=== PATIENT | male | born 1940 | race Caucasian/White ===

== ENCOUNTER 2016-09-16 11:55 | Emergency (ER) | payer MEDICARE, MEDICAID, OTHER ==
[~2016-09-16] VITALS: Ht 167.6 cm; Wt 60.0 kg
[~2016-09-16 11:55] MED LIST: AVOD0.5C PO; CANA300T PO; CARV25TA PO; LACO50 PO; OXYBXL5 PO; ROSU10 PO; TAMS5CAP PO; TRAD5TAB PO
[2016-09-16 12:18] VITALS: BP 161/74; PULSE 84; RESP 18; TEMP 98.1
--- NOTE | 2016-09-16 12:50 | PD ---
HPI . Perdomo Act Chief Complaint: Psychiatric Symptoms Time Seen by Provider: 12:32 Travel History International Travel<30 days: No Contact w/Intl Traveler<30days: No Traveled to known affect area: No History of Present Illness HPI The patient was brought to us by police under the Perdomo Act. The patient states that he was having a verbal altercation with his significant other. He states that she is kicking him out. The police were reportedly called. The Perdomo act papers state that the patient told the police "it would be easier to just ." The patient was subsequently brought to us for evaluation. The patient states that he was not violent in any way. He states that he is not feeling suicidal. He reports no previous psychiatric history. PFSH Past Medical History Cancer: Yes (PROSTATE) Cardiovascular Problems: Yes (CABG X 3, PACEMAKER) Diabetes: Yes Diminished Hearing: No Endocrine: Yes Hepatitis: No Hiatal Hernia: No Immune Disorder: No Musculoskeletal: No Neurologic: Yes (NEUROPATHY ) Respiratory: No Immunizations Current: Yes Thyroid Disease: No Tetanus Vaccination: > 5 Years Influenza Vaccination: No Past Surgical History Abdominal Surgery: No AICD: No Cardiac Surgery: Yes (CABG X 3) Ear Surgery: No Endocrine Surgery: No Eye Surgery: No Genitourinary Surgery: Yes Gynecologic Surgery: No Joint Replacement: No Oral Surgery: No Pacemaker: Yes ([facility], pt states it "doesn't go off") Thoracic Surgery: No Social History Alcohol Use: No Tobacco Use: Yes Substance Use: No Allergies-Medications (Allergen,Severity, Reaction): Coded Allergies: Iodine (Verified Allergy, Severe, HIVES , 03/24/16) SHELLFISH Shellfish (Verified Allergy, Severe, Rash, 03/24/16) Reported Meds & Prescriptions Reported Meds & Active Scripts Active Ditropan XL 24 HR (Oxybutynin Chloride) 5 Mg Tab 5 Mg PO DAILY Reported Vimpat (Lacosamide) 50 Mg Tab 50 Mg PO BID Carvedilol 25 Mg Tab 25 Mg PO BID Invokana (Canagliflozin) 300 Mg Tab 300 Mg PO DAILY Take before 1st meal of day. Tradjenta (Linagliptin) 5 Mg Tab 5 Mg PO DAILY Crestor (Rosuvastatin Calcium) 10 Mg Tab 10 Mg PO DAILY Avodart (Dutasteride) 0.5 Mg Cap 0.5 Mg PO DAILY Flomax (Tamsulosin HCl) 0.4 Mg Cap 0.4 Mg PO HS Review of Systems Except as stated in HPI: all other systems reviewed are Neg Physical Exam Narrative GENERAL: Awake and alert and in no acute distress. SKIN: Warm and dry. HEAD: Atraumatic. Normocephalic. EYES: Pupils equal and round. NECK: Trachea midline. CARDIOVASCULAR: Regular rate and rhythm. RESPIRATORY: No accessory muscle use. MUSCULOSKELETAL: No obvious deformities. No edema. NEUROLOGICAL: Awake and alert. No obvious cranial nerve deficits. Motor grossly within normal limits. Normal speech. PSYCHIATRIC: Appropriate mood and affect; insight and judgment normal. Data Data Last Documented VS Vital Signs Date Time Temp Pulse Resp B/P Pulse Ox O2 Delivery O2 Flow Rate FiO2 09/16/16 12:18 98.1 84 18 161/74 Orders Complete Blood Count With Diff (09/16/16 12:32) Comprehensive Metabolic Panel (09/16/16 12:32) Psych Screen (09/16/16 12:32) Drug Screen, Random Urine (09/16/16 12:32) Alcohol (Ethanol) (09/16/16 12:32) Diet Regular Basic (09/16/16 Lunch) Labs Laboratory Tests Test 09/16/16 12:50 White Blood Count 11.9 TH/MM3 Red Blood Count 5.77 MIL/MM3 Hemoglobin 16.8 GM/DL Hematocrit 50.4 % Mean Corpuscular Volume 87.3 FL Mean Corpuscular Hemoglobin 29.1 PG Mean Corpuscular Hemoglobin 33.4 % Concent Red Cell Distribution Width 15.8 % Platelet Count 196 TH/MM3 Mean Platelet Volume 8.8 FL Neutrophils (%) (Auto) 76.0 % Lymphocytes (%) (Auto) 16.8 % Monocytes (%) (Auto) 5.8 % Eosinophils (%) (Auto) 1.0 % Basophils (%) (Auto) 0.4 % Neutrophils # (Auto) 9.0 TH/MM3 Lymphocytes # (Auto) 2.0 TH/MM3 Monocytes # (Auto) 0.7 TH/MM3 Eosinophils # (Auto) 0.1 TH/MM3 Basophils # (Auto) 0.1 TH/MM3 CBC Comment DIFF FINAL Differential Comment Sodium Level 135 MEQ/L Potassium Level 4.1 MEQ/L Chloride Level 103 MEQ/L Carbon Dioxide Level 20.9 MEQ/L Anion Gap 11 MEQ/L Blood Urea Nitrogen 15 MG/DL Creatinine 1.22 MG/DL Estimat Glomerular Filtration 58 ML/MIN Rate Random Glucose 240 MG/DL Calcium Level 9.1 MG/DL Total Bilirubin 0.4 MG/DL Aspartate Amino Transf 12 U/L (AST/SGOT) Alanine Aminotransferase 15 U/L (ALT/SGPT) Alkaline Phosphatase 104 U/L Total Protein 7.4 GM/DL Albumin 3.1 GM/DL Ethyl Alcohol Level LESS THAN 3 MG/DL MDM Medical Decision Making Medical Screen Exam Complete: Yes Emergency Medical Condition: Yes Medical Record Reviewed: Yes (this patient has a history of prostate cancer, diabetes, COPD and coronary artery disease. There is no mention in his old records of any psychiatric illness.) Differential Diagnosis Differential diagnosis includes but is not limited to depression with suicidal gesture, suicide attempt, suicidal ideation, attention seeking behavior. Narrative Course This patient presents as a Perdomo Act. He will be medically cleared and then referred for psychiatric screening. CBC & BMP Diagram 09/16/16 12:50 Alcohol level is negative. This patient is medically clear for psychiatric evaluation. Diagnosis Primary Impression: Medical clearance for psychiatric admission Condition: Stable Lisa Beebe MD Sep 16, 2016 12:50
[2016-09-16 13:07] LABS: BASOPHIL # 0.1 TH/MM3 (0-0.2); BASOPHIL % 0.4 % (0.0-2.0); EOSINOPHIL # 0.1 TH/MM3 (0-0.4); HEMATOCRIT 50.4 % (39.0-51.0); HEMO FLAGS DIFF FINAL; LYMPH % 16.8 % (9.0-44.0); MEAN CELL VOLUME 87.3 FL (80.0-100.0); MEAN CORPUSCULAR HEMOGLOBIN 29.1 PG (27.0-34.0); MEAN CORPUSCULAR HGB CONC 33.4 % (32.0-36.0); MONO % 5.8 % (0.0-8.0); PLATELET COUNT 196 TH/MM3 (150-450); RED BLOOD COUNT 5.77 MIL/MM3 (4.50-5.90); RED CELL DISTRIBUTION WIDTH 15.8 % (11.6-17.2); WHITE BLOOD COUNT 11.9 TH/MM3 (4.0-11.0)
[2016-09-16 13:23] LABS: ALT (GPT) 15 U/L (12-78); ANION GAP 11 MEQ/L (5-15); AST (GOT) 12 U/L (15-37); BICARBONATE 20.9 MEQ/L (21.0-32.0); BLOOD UREA NITROGEN 15 MG/DL (7-18); CHLORIDE 103 MEQ/L (98-107); GLOMERULAR FILTRATION RATE 58 ML/MIN (>89); POTASSIUM 4.1 MEQ/L (3.5-5.1); SODIUM (NA) 135 MEQ/L (136-145)
[2016-09-16 13:25] LABS: ALKALINE PHOSPHATASE 104 U/L (45-117); TOTAL BILIRUBIN ADULT 0.4 MG/DL (0.2-1.0)
[2016-09-16 13:49] LABS: AMPHETAMINE, URINE NEG (NEG); BARBITURATES, URINE NEG (NEG); COCAINE, URINE NEG (NEG)
[2016-09-16 14:43] VITALS: BP 145/78; PULSE 84; RESP 18; O2SAT 98
[2016-09-17] MEDS ORDERED: METF500T PO (00:53)
[2016-09-17] MEDS ORDERED: OXYBUTYNIN CHLORIDE 5 MG TAB PO ONE (01:00)
[2016-09-17] MEDS ORDERED: ACETAMINOPHEN 325 MG TAB PO ONE (01:00)
[2016-09-17 02:25] VITALS: BP 159/67; PULSE 75; RESP 18; O2SAT 96
[2016-09-17 06:31] VITALS: BP_SYST 204; BP_SYST 211; BP_SYST 218; BP_DIAS 90; BP_DIAS 91; PULSE 73; RESP 18; O2SAT 96
[2016-09-17] MEDS ORDERED: CARVEDILOL 12.5 MG TAB PO ONE (06:45)
[2016-09-17 10:40] VITALS: BP 194/79; PULSE 60; RESP 20
--- NOTE | 2016-09-17 12:05 | PD ---
History of Present Illness Chief Complaint: Psychiatric Symptoms Time Seen by Provider: 11:30 Travel History International Travel<30 Days: No Contact w/Intl Traveler<30days: No Known affected area: No Legal Status Legal Status: Perdomo Act Perdomo Act Signed By: Anuj Baez Perdomo Act Comment: 09/16/2016 10:34 AM History of Present Illness: History of Present Illness HPI The patient is a 76 year old male with no previous psychiatric history who was brought to us under the Perdomo Act initiated by [employer]. The BA alleges that the patient stated it would be easier to just and that he needed to be seen by a psychiatrist. He reports that while involved in a verbal argument with his friend and roommate of 20 years he became angry and made the statement . His roommate wants to move to another state and he has to find a viable living arrangement and was working on the computer when they began to argue. He did not make any attempts at harming himself and denies that he has any intent of doing so and states " that would be stupid". EMR is reviewed. No previous contact with [facility] psychiatry dept. Current toxicology is negative. Patient has been monitored here in [facility] and he has presented no behavioral concerns and no suicidality. He is alert and oriented male who appears stated age. he is engaging and cooperative. There is no evidence of any psychosis and he does not present any symptoms of rhina or hypomania. He denies any depression or anxiety and does tell me he was depressed 8 years go when his son was murdered. His only concern now is getting his medications and finding a place to stay. He has never received any psychiatric care. He also denies any hx of violence and states that the conflicts with his girlfriend are only verbal in nature. He is interested in finding an PENITENTIARY that he can afford so that he can move out on his own. PFSH Past Medical History Cancer: Yes (PROSTATE) Cardiovascular Problems: Yes (CABG X 3, PACEMAKER) Diabetes: Yes Diminished Hearing: No Endocrine: Yes Hepatitis: No Hiatal Hernia: No Immune Disorder: No Musculoskeletal: No Neurologic: Yes (NEUROPATHY ) Respiratory: No Immunizations Current: Yes Thyroid Disease: No Tetanus Vaccination: > 5 Years Influenza Vaccination: No Past Surgical History Abdominal Surgery: No AICD: No Cardiac Surgery: Yes (CABG X 3) Ear Surgery: No Endocrine Surgery: No Eye Surgery: No Genitourinary Surgery: Yes Gynecologic Surgery: No Joint Replacement: No Oral Surgery: No Pacemaker: Yes ([facility], pt states it "doesn't go off") Thoracic Surgery: No Psychiatric History Psychiatric History Hx Psychiatric Treatment: No previous tx. No previous hx of suicde attempts. No hx of violence. History of Inpatient Treatment: No Guns or firearms in home: No Social History Single male. Born in [place]. retired staff appraiser. Lives with his female friend. Hx Alcohol Use: No Hx Tobacco Use: Yes Hx Substance Use: Yes (3-4 small cigars daily) Substance Use Type: Nicotine/Cigarettes Hx of Substance Use Treatment: No Family Psychiatric History negative Allergies-Medications (Allergen,Severity, Reaction): Coded Allergies: Iodine (Verified Allergy, Severe, HIVES , 03/24/16) SHELLFISH Shellfish (Verified Allergy, Severe, Rash, 03/24/16) Reported Meds & Prescriptions Reported Meds & Active Scripts Active Ditropan XL 24 HR (Oxybutynin Chloride) 5 Mg Tab 5 Mg PO DAILY Reported Metformin (Metformin HCl) 500 Mg Tab 500 Mg PO BIDPC With meals Vimpat (Lacosamide) 50 Mg Tab 50 Mg PO BID Carvedilol 25 Mg Tab 25 Mg PO BID Crestor (Rosuvastatin Calcium) 10 Mg Tab 10 Mg PO DAILY Avodart (Dutasteride) 0.5 Mg Cap 0.5 Mg PO DAILY Flomax (Tamsulosin HCl) 0.4 Mg Cap 0.4 Mg PO HS Review of Systems Constitutional: DENIES: Diaphoretic episodes, Fatigue, Fever, Weight gain, Weight loss, Chills, Dizziness, Change in appetite, Night Sweats Endocrine: DENIES: Heat/cold intolerance, Polydipsia, Polyuria, Polyphagia Eyes: COMPLAINS OF: Vision loss Ears, nose, mouth, throat: DENIES: Tinnitus, Hearing loss, Vertigo, Nasal discharge, Oral lesions, Throat pain, Hoarseness, Ear Pain, Running Nose, Epistaxis, Sinus Pain, Toothache, Odynophagia Respiratory: DENIES: Apneas, Cough, Snoring, Wheezing, Hemoptysis, Sputum production, Shortness of breath Cardiovascular: COMPLAINS OF: Chest pain, Dyspnea on Exertion Gastrointestinal: DENIES: Abdominal pain, Black stools, Bloody stools, Constipation, Diarrhea, Nausea, Vomiting, Difficulty Swallowing, Anorexia Genitourinary: COMPLAINS OF: Urinary frequency Musculoskeletal: DENIES: Joint pain, Muscle aches, Stiffness, Joint Swelling, Back pain, Neck pain Integumentary: DENIES: Abnormal pigmentation, Nail changes, Pruritus, Rash Hematologic/lymphatic: DENIES: Bruising, Lymphadenopathy Immunologic/allergic: DENIES: Eczema, Urticaria Neurologic: COMPLAINS OF: Poor Balance Psychiatric: DENIES: Anxiety, Confusion, Mood changes, Depression, Hallucinations, Agitation, Suicidal Ideation, Homicidal Ideation, Delusions Exam Alert: Yes Berthold: Person (ox4) Mood: Anxious (About being here) Speech: Clear, Logical Eye Contact: Normal Memory Intact: Comment (No impairmetn) Hallucinations: Other (negative) Delusions: No Suicidal: Ideation (Denies ) Homicidal: Ideation (Denies) Insight/Judgement Fair. Not impaired. MDM Medical Decision Making Medical Record Reviewed: Yes Assessment/Plan 76 year old male with no previous psychiatric history, no previous suicidal attempts who in context of an argument with his roommate stated that it would be easier to just . The patient does not present suicidal or homicidal ideation a. he acknowledges feeling frustrated when he made the statement . he contracts for safety. he is future oriented and would like help in finding a ' reasonably [place] [facility]". This patient does not meet BA criteria. BA will be lifted. Discharge home. Orders Complete Blood Count With Diff (09/16/16 12:32) Comprehensive Metabolic Panel (09/16/16 12:32) Psych Screen (09/16/16 12:32) Drug Screen, Random Urine (09/16/16 12:32) Alcohol (Ethanol) (09/16/16 12:32) Diet Regular Basic (09/16/16 Lunch) Oxybutynin (Ditropan) (09/17/16 01:00) Acetaminophen (Tylenol) (09/17/16 01:00) Diet Diabetic (09/17/16 Breakfast) Carvedilol (Coreg) (09/17/16 06:45) Diet Regular Basic (7/22/17 Lunch) Results Vital Signs Date Time Temp Pulse Resp B/P Pulse Ox O2 Delivery O2 Flow Rate FiO2 09/17/16 10:40 60 20 194/79 Room Air 09/17/16 06:31 73 18 218/91 96 211/91 204/90 09/17/16 02:25 75 18 159/67 96 09/16/16 14:43 84 18 145/78 98 Room Air 09/16/16 12:18 98.1 84 18 161/74 Laboratory Tests Test 09/16/16 09/16/16 12:50 13:20 White Blood Count 11.9 Red Blood Count 5.77 Hemoglobin 16.8 Hematocrit 50.4 Mean Corpuscular Volume 87.3 Mean Corpuscular Hemoglobin 29.1 Mean Corpuscular Hemoglobin 33.4 Concent Red Cell Distribution Width 15.8 Platelet Count 196 Mean Platelet Volume 8.8 Neutrophils (%) (Auto) 76.0 Lymphocytes (%) (Auto) 16.8 Monocytes (%) (Auto) 5.8 Eosinophils (%) (Auto) 1.0 Basophils (%) (Auto) 0.4 Neutrophils # (Auto) 9.0 Lymphocytes # (Auto) 2.0 Monocytes # (Auto) 0.7 Eosinophils # (Auto) 0.1 Basophils # (Auto) 0.1 CBC Comment DIFF FINAL Differential Comment Sodium Level 135 Potassium Level 4.1 Chloride Level 103 Carbon Dioxide Level 20.9 Anion Gap 11 Blood Urea Nitrogen 15 Creatinine 1.22 Estimat Glomerular Filtration 58 Rate Random Glucose 240 Calcium Level 9.1 Total Bilirubin 0.4 Aspartate Amino Transf 12 (AST/SGOT) Alanine Aminotransferase 15 (ALT/SGPT) Alkaline Phosphatase 104 Total Protein 7.4 Albumin 3.1 Ethyl Alcohol Level LESS THAN 3 Urine Opiates Screen NEG Urine Barbiturates Screen NEG Urine Amphetamines Screen NEG Urine Benzodiazepines Screen NEG Urine Cocaine Screen NEG Urine Cannabinoids Screen NEG Diagnosis Primary Impression: Adjustment disorder Psychiatrically Cleared: Yes Med/ Other Pt Specific Info: No Meds Exist/No RX given Disposition: 01 DISCHARGE HOME Condition: Stable Problem Qualifiers Primary Impression: Adjustment disorder Qualified Code: F43.22 - Adjustment disorder with anxious mood Lisa Neves Sep 17, 2016 12:04
== END 2016-09-17 12:41 | disposition home or self-care (01) ==
LOC: NEPE 11:55 → NEPJ 09-17 12:41
DX: F43.20 Adjustment disorder, unspecified (principal); Z95.1 Presence of aortocoronary bypass graft; Z95.0 Presence of cardiac pacemaker; E11.9 Type 2 diabetes mellitus without complications; Z72.0 Tobacco use
CPT/HCPCS: 80053; 80307; 85025; 99284

== ENCOUNTER 2017-03-02 00:35 | Inpatient (IN) | payer MEDICARE, MEDICAID ==
[2017-03-02] VITALS (16 sets, daily range): BP systolic 99–155; BP diastolic 44–70; PULSE 60–100; RESP 15–20; TEMP 96.1–98.3; O2SAT 95–100
[~2017-03-02 00:35] MED LIST changes: -CANA300T PO; +METF500T PO; -TRAD5TAB PO
[2017-03-02] MEDS ORDERED: GABA300C5 PO (01:01)
[2017-03-02] MEDS ORDERED: MINO100 PO (01:01)
[2017-03-02] MEDS ORDERED: GUAI600T11 PO (01:01)
[2017-03-02] MEDS ORDERED: HYDR-3801 PO (01:01)
[2017-03-02] MEDS ORDERED: MOXI1TAB2 PO (01:01)
[2017-03-02] MEDS ORDERED: CITA20TA4 PO (01:01)
[2017-03-02] MEDS ORDERED: LISI10TA3 PO (01:01)
[2017-03-02 01:39] LABS: BASOPHIL # 0.1 TH/MM3 (0-0.2); BASOPHIL % 0.8 % (0.0-2.0); EOSINOPHIL # 0.4 TH/MM3 (0-0.4); EOSINOPHIL % 3.8 % (0.0-4.0); HEMATOCRIT 21.8 % (39.0-51.0); HEMOGLOBIN 7.2 GM/DL (13.0-17.0); LYMPH % 18.6 % (9.0-44.0); LYMPHOCYTE # 2.1 TH/MM3 (1.0-4.8); MEAN CELL VOLUME 83.4 FL (80.0-100.0); MEAN CORPUSCULAR HEMOGLOBIN 27.6 PG (27.0-34.0); MEAN CORPUSCULAR HGB CONC 33.1 % (32.0-36.0); MEAN PLATELET VOLUME 8.6 FL (7.0-11.0); MONO % 7.5 % (0.0-8.0); MONOCYTE # 0.9 TH/MM3 (0-0.9); NEUT % 69.3 % (16.0-70.0); PLATELET COUNT 298 TH/MM3 (150-450); RED BLOOD COUNT 2.61 MIL/MM3 (4.50-5.90); RED CELL DISTRIBUTION WIDTH 17.2 % (11.6-17.2); WHITE BLOOD COUNT 11.6 TH/MM3 (4.0-11.0)
[2017-03-02 01:56] LABS: ALBUMIN 2.1 GM/DL (3.4-5.0); ALT (GPT) 11 U/L (12-78); AST (GOT) 11 U/L (15-37); BICARBONATE 26.3 MEQ/L (21.0-32.0); BLOOD UREA NITROGEN 37 MG/DL (7-18); CHLORIDE 109 MEQ/L (98-107); CREATININE 1.23 MG/DL (0.60-1.30); GLOMERULAR FILTRATION RATE 57 ML/MIN (>89); GLUCOSE,RANDOM 136 MG/DL (74-106); LIPASE 96 U/L (73-393); MAGNESIUM 1.6 MG/DL (1.5-2.5); SODIUM (NA) 146 MEQ/L (136-145)
[2017-03-02 01:58] LABS: ALKALINE PHOSPHATASE 92 U/L (45-117); TOTAL BILIRUBIN ADULT 0.2 MG/DL (0.2-1.0); TOTAL PROTEIN 5.8 GM/DL (6.4-8.2)
[2017-03-02] MEDS ORDERED: SODIUM CHLORIDE 0.9% FLUSH 10 ML FLUSH IV FLUSH PRN (02:45)
[2017-03-02] MEDS ORDERED: BISACODYL 10 MG SUPP RECTAL PRN (02:45)
[2017-03-02] MEDS ORDERED: MAGNESIUM HYDROXIDE SUSP 30 ML CUP PO PRN (02:45)
[2017-03-02] MEDS ORDERED: SENNOSIDES 8.6 MG TAB PO PRN (02:45)
[2017-03-02] MEDS ORDERED: NALOXONE HCL 0.4 MG/ML AMP IV PUSH PRN (02:45)
[2017-03-02] MEDS ORDERED: ONDANSETRON HCL 4 MG/2 ML VIAL IVP PRN (02:45)
[2017-03-02] MEDS ORDERED: ACETAMINOPHEN 325 MG TAB PO PRN (02:45)
[2017-03-02] MEDS ORDERED: GLUCAGON 1 MG/ML VIAL OTHER PRN (03:00)
[2017-03-02] MEDS ORDERED: DEXTROSE 50% IN WATER 50 ML VIAL(D50) IV PUSH PRN (03:00)
--- NOTE | 2017-03-02 03:18 | RADRPT ---
EXAM DATE/TIME: 03/02/2017 03:00 [facility] COMPARISON: No previous studies available for comparison. INDICATIONS : Dizziness. RADIATION DOSE: 56.35 CTDIvol (mGy) MEDICAL HISTORY : Stroke. Seizures. Hypertension. SURGICAL HISTORY : CABG ENCOUNTER: Initial ACUITY: 1 day PAIN SCALE: 0/10 LOCATION: cranial TECHNIQUE: Multiple contiguous axial images were obtained of the head. Using automated exposure control and adj ustment of the mA and/or kV according to patient size, radiation dose was kept as low as reasonably a chievable to obtain optimal diagnostic quality images. DICOM format image data is available electro nically for review and comparison. FINDINGS: CEREBRUM: Atrophy. Extensive low attenuation change involving the periventricular white matter both cerebral he mispheres. Area of encephalomalacia involving the right posterior watershed. The ventricles are reinaldo l for age. No evidence of midline shift, mass lesion, hemorrhage or acute infarction. No extra-axia l fluid collections are seen. POSTERIOR FOSSA: The cerebellum and brainstem are intact. The 4th ventricle is midline. The cerebellopontine angle i s unremarkable. EXTRACRANIAL: The visualized portion of the orbits is intact. SKULL: The calvaria is intact. No evidence of skull fracture. CONCLUSION: No acute disease. Jovanni Kay Jr., MD on March 02, 2017 at 3:16 Board Certified Radiologist. This report was verified electronically.
--- NOTE | 2017-03-02 03:25 | RADRPT ---
EXAM DATE/TIME: 03/02/2017 03:05 [facility] COMPARISON: No previous studies available for comparison. INDICATIONS : Shortness of breath MEDICAL HISTORY : Hypertension. Chronic obstructive pulmonary disease. SURGICAL HISTORY : CABG. Pacemaker. ENCOUNTER: Initial ACUITY: 1 day PAIN SCORE: 0/10 LOCATION: Bilateral chest FINDINGS: A single portable frontal view of the chest shows the heart to be normal in size. A vague parenchymal consolidation within the right upper lobe. Lungs are hyperaerated. No effusions. Median sternotomy w ires and left-sided pacing device. CONCLUSION: 1. Hyperinflation suggesting COPD. 2. Right upper lobe infiltrate. Jovanni Kay Jr., MD on March 02, 2017 at 3:23 Board Certified Radiologist. This report was verified electronically.
[2017-03-02] MEDS ORDERED: SODIUM CHLOR 0.9% 250 ML INJ 250 ML IV ONE (04:00)
[2017-03-02] MEDS ORDERED: RESP: ALBUTEROL 2.5 MG/IPRATROPIUM 0.5 MG NEB (PRN) NEB (04:00)
[2017-03-02] MEDS ORDERED: FUROSEMIDE 20 MG/2 ML VIAL IV PUSH ONE (04:00)
--- NOTE | 2017-03-02 04:02 | HHI.HP ---
[facility] Physician Dick Tan MD Admission Diagnosis ANemia Diagnoses: Travel History International Travel<30 Days: No Contact w/Intl Traveler <30 Da: No Traveled to Known Affected Are: No History of Present Illness 76-year-old male with a past medical history significant for diabetes mellitus, COPD, CAD status post CABG, GERD and BPH presents to the emergency department from his rehabilitation facility for evaluation of anemia. The patient had outpatient labs drawn which were significant for a hemoglobin of 6.9. The patient reports a several day history of fatigue, dizziness and frequent falls. He denies shortness of breath. He reports falling 2 days ago onto his head. He denies hematuria, melena or bright red blood per rectum. He was discharged from [facility] approximately one week ago where he underwent left great toe partial amputation secondary to diabetic foot infection. He is currently being treated with antibiotics for a left heel ulcer. The patient reports he had a "small stroke" while in the hospital. Past Family Social History Past Medical History CAD COPD GERD Diabetes mellitus BPH Peripheral neuropathy Past Surgical History Left great toe partial amputation CABG 3 in 2008 Pacemaker placement 2008 Bilateral cataract surgery Reported Medications Reported Meds & Active Scripts Active Reported Minocycline (Minocycline HCl) 100 Mg Cap 100 Mg PO BID Gabapentin 300 Mg Cap 300 Mg PO BID Mucus Relief ER (Guaifenesin) 600 Mg Tab 600 Mg PO BID PRN Lisinopril 10 Mg Tab 10 Mg PO DAILY Hydralazine (Hydralazine HCl) 100 Mg Tab 25 Mg PO BID Take with meals Moxifloxacin (Moxifloxacin HCl) 400 Mg Tab 400 Mg PO DAILY Citalopram (Citalopram Hydrobromide) 20 Mg Tab 20 Mg PO DAILY Metformin (Metformin HCl) 500 Mg Tab 500 Mg PO BIDPC With meals Carvedilol 25 Mg Tab 25 Mg PO BID Crestor (Rosuvastatin Calcium) 10 Mg Tab 10 Mg PO DAILY Avodart (Dutasteride) 0.5 Mg Cap 0.5 Mg PO DAILY Flomax (Tamsulosin HCl) 0.4 Mg Cap 0.4 Mg PO HS Allergies: Coded Allergies: iodine (Verified Allergy, Severe, HIVES , 03/02/17) SHELLFISH potassium iodide (Verified Allergy, Severe, HIVES , 03/02/17) SHELLFISH povidone-iodine (Verified Allergy, Severe, HIVES , 03/02/17) SHELLFISH shellfish derived (Verified Allergy, Severe, Rash, 03/02/17) sodium iodide (Verified Allergy, Severe, HIVES , 03/02/17) SHELLFISH sodium iodide (Verified Allergy, Severe, HIVES , 03/02/17) SHELLFISH Family History Denies family history of DM/CAD Social History Quit smoking approximately 3-4 weeks ago. Denies alcohol, illicit drugs. Physical Exam Vital Signs Vital Signs Date Time Temp Pulse Resp B/P (MAP) Pulse Ox O2 Delivery O2 Flow Rate FiO2 03/02/17 03:12 73 18 116/56 (76) 99 Room Air 03/02/17 00:44 97.5 73 16 112/55 (74) 98 Physical Exam GENERAL: male lying in bed SKIN: Left heel ulceration without signs of active infection. HEAD: 3 cm abrasion with surrounding ecchymoses on the left forehead. EYES: Pupils equal round and reactive. Extraocular motions intact. No scleral icterus. No injection or drainage. ENT: Nose without bleeding, purulent drainage or septal hematoma. Throat without erythema, tonsillar hypertrophy or exudate. Uvula midline. Airway patent. NECK: Trachea midline. No JVD or lymphadenopathy. Supple, nontender, no meningeal signs. CARDIOVASCULAR: Regular rate and rhythm without murmurs, gallops, or rubs. RESPIRATORY: Clear to auscultation. Breath sounds equal bilaterally. No wheezes , rales, or rhonchi. GASTROINTESTINAL: Abdomen soft, non-tender, nondistended. No hepato-splenomegaly , or palpable masses. No guarding. MUSCULOSKELETAL: Extremities without clubbing, cyanosis, or edema. No joint tenderness, effusion, or edema noted. No calf tenderness. Left great toe partial amputation with sutures intact. Incision clean/dry/intact without drainage. No surrounding erythema or signs of infection. NEUROLOGICAL: Awake and alert. Cranial nerves II through XII intact. Motor and sensory grossly within normal limits. Five out of 5 muscle strength in all muscle groups. Normal speech. Laboratory Laboratory Tests Test 03/02/17 01:32 White Blood Count 11.6 Red Blood Count 2.61 Hemoglobin 7.2 Hematocrit 21.8 Mean Corpuscular Volume 83.4 Mean Corpuscular Hemoglobin 27.6 Mean Corpuscular Hemoglobin Concent 33.1 Red Cell Distribution Width 17.2 Platelet Count 298 Mean Platelet Volume 8.6 Neutrophils (%) (Auto) 69.3 Lymphocytes (%) (Auto) 18.6 Monocytes (%) (Auto) 7.5 Eosinophils (%) (Auto) 3.8 Basophils (%) (Auto) 0.8 Neutrophils # (Auto) 8.0 Lymphocytes # (Auto) 2.1 Monocytes # (Auto) 0.9 Eosinophils # (Auto) 0.4 Basophils # (Auto) 0.1 CBC Comment DIFF FINAL Differential Comment Blood Urea Nitrogen 37 Creatinine 1.23 Random Glucose 136 Total Protein 5.8 Albumin 2.1 Calcium Level 8.0 Magnesium Level 1.6 Alkaline Phosphatase 92 Aspartate Amino Transf (AST/SGOT) 11 Alanine Aminotransferase (ALT/SGPT) 11 Total Bilirubin 0.2 Sodium Level 146 Potassium Level 4.0 Chloride Level 109 Carbon Dioxide Level 26.3 Anion Gap 11 Estimat Glomerular Filtration Rate 57 Lipase 96 Result Diagram: 03/02/1713103/02/17131 Caprini VTE Risk Assessment Caprini VTE Risk Assessment: Mod/High Risk (score >= 2) Caprini Risk Assessment Model Point Value = 1 Point Value = 2 Point Value = 3 Point Value = 5 Age 41-60 Minor surgery BMI > 25 kg/m2 Swollen legs Varicose veins or History of unexplained or recurrent spontaneous Oral contraceptives or hormone replacement Sepsis (< 1 month) Serious lung disease, including pneumonia (< 1 month) Abnormal pulmonary function Acute myocardial infarction Congestive heart failure (< 1 month) History of inflammatory bowel disease Medical patient at bed rest Age 61-74 Arthroscopic surgery Major open surgery (> 45 min) Laparoscopic surgery (> 45 min) Malignancy Confined to bed (> 72 hours) Immobilizing plaster cast Central venous access Age >= 75 History of VTE Family history of VTE Factor V Leiden Prothrombin [id number] Lupus anticoagulant Anticardiolipin antibodies Elevated serum homocysteine Heparin-induced thrombocytopenia Other congenital or acquired thrombophilia Stroke (< 1 month) Elective arthroplasty Hip, pelvis, or leg fracture Acute spinal cord injury (< 1 month) Prophylaxis Regimen Total Risk Factor Score Risk Level Prophylaxis Regimen 0-1 Low Early ambulation 2 Moderate Order ONE of the following: *Sequential Compression Device (SCD) *Heparin 5000 units SQ BID 3-4 Higher Order ONE of the following medications: *Heparin 5000 units SQ TID *Enoxaparin/Lovenox 40 mg SQ daily (WT < 150 kg, CrCl > 30 mL/min) *Enoxaparin/Lovenox 30 mg SQ daily (WT < 150 kg, CrCl > 10-29 mL/min) *Enoxaparin/Lovenox 30 mg SQ BID (WT < 150 kg, CrCl > 30 mL/min) AND/OR *Sequential Compression Device (SCD) 5 or more Highest Order ONE of the following medications: *Heparin 5000 units SQ TID (Preferred with Epidurals) *Enoxaparin/Lovenox 40 mg SQ daily (WT < 150 kg, CrCl > 30 mL/min) *Enoxaparin/Lovenox 30 mg SQ daily (WT < 150 kg, CrCl > 10-29 mL/min) *Enoxaparin/Lovenox 30 mg SQ BID (WT < 150 kg, CrCl > 30 mL/min) AND *Sequential Compression Device (SCD) Assessment and Plan Assessment and Plan Assessment/plan: 1. Symptomatic anemia H&H 7.2/21.8, was 16.8/50.4 in August 2016 Transfuse 2 units PRBCs Hemoccult pending Monitor for signs of bleeding 2. Healthcare associated pneumonia Patient with leukocytosis, WBCs 11.6 Discharged from the hospital one week ago, currently residing in rehabilitation facility Chest x-ray significant for mild right upper lobe infiltrate, images reviewed by ut Cefepime/Azithromycin DuoNebs Blood cultures pending 3. Diabetic wound/status post partial amputation left great toe secondary to infection Antibiotics as above Consult wound care 4. Fall Patient with hematoma/abrasion on left forehead Denies LOC Heat CT negative 2/2 anemia vs unstable gait after toe amputation PT 4. Diabetes mellitus SSI Monitor BG 5. CAD/hypertension/hyperlipidemia Continue home medications 6. COPD DuoNebs 7. GERD/BPH Continue home medications FEN Diabetic diet Electrolytes: s/p PO Mg, monitor and replete prn Holding pharmacologic anticoagulation for possible bleed Physician Certification 2 Midnight Certification Type: Admission for Inpatient Services Order for Inpatient Services The services are ordered in accordance with Medicare regulations or non- Medicare payer requirements, as applicable. In the case of services not specified as inpatient-only, they are appropriately provided as inpatient services in accordance with the 2-midnight benchmark. Estimated LOS (days): 2 2 days is the estimated time the patient will need to remain in the hospital, assuming treatment plan goals are met and no additional complications. Post-Hospital Plan: Not yet determined Delmy Hare MD Mar 02, 2017 04:02
[2017-03-02 04:15] LABS: % SATURATION IRON PROFILE 7.6 % (20-50); IRON (FE) 18 MCG/DL (65-175); TOTAL IRON BINDING CAPACITY 238 MCG/DL (250-450)
[2017-03-02 04:40] LABS: FERRITIN 76 NG/ML (26-388); FOLATE 9.2 NG/ML (3.1-17.5)
[2017-03-02] MEDS: AZITHROMYCIN INJ 500 MG in SODIUM CHLOR 0.9% 250 ML INJ 250 ML IV SCH (05:00)
[2017-03-02] MEDS: CEFEPIME INJ 2,000 MG in SODIUM CHLORIDE 0.9% INJ 100 ML IV SCH ×3 (05:03→16:27)
[2017-03-02] MEDS: ACETAMINOPHEN/HYDROcodone 325 MG/5 MG TAB PO PRN ×2 (05:44→12:38)
[2017-03-02 06:30] LABS: BACTERIA, URINE RARE /hpf; BILIRUBIN, URINE NEG (NEG); BLOOD, URINE NEG (NEG); GLUCOSE,URINE NEG (NEG); KETONE, URINE NEG (NEG); MUCUS URINE FEW /lpf (OCC); NITRITE,URINE NEG (NEG); SQUAMOUS EPITHELIAL CELL URINE <1 /hpf (0-5); URINE COLOR YELLOW (YELLW/STRAW); URINE LEUKOCYTE ESTERASE NEG (NEG)
[2017-03-02] MEDS: INSULIN ASPART SUPPLEMENTAL SCALE SQ SCH ×4 (08:00→22:12)
[2017-03-02] MEDS: hydrALAZINE HCL 25 MG TAB PO SCH ×2 (08:21→22:11)
[2017-03-02] MEDS: CARVEDILOL 12.5 MG TAB PO SCH ×2 (08:21→22:11)
[2017-03-02] MEDS: LISINOPRIL 10 MG TAB PO SCH (08:22)
[2017-03-02] MEDS: CITALOPRAM HYDROBROMIDE 20 MG TAB PO SCH (08:27)
[2017-03-02] MEDS: MAGNESIUM OXIDE 400 MG TAB PO SCH ×2 (08:27→22:11)
[2017-03-02] MEDS: FINASTERIDE 5 MG TAB PO SCH (08:27)
[2017-03-02] MEDS: ATORVASTATIN 20 MG TAB PO SCH (08:27)
[2017-03-02] MEDS: SODIUM CHLORIDE 0.9% FLUSH 10 ML FLUSH IV FLUSH SCH ×2 (08:27→22:18)
[2017-03-02] MEDS: GABAPENTIN 300 MG CAP PO SCH ×2 (08:27→22:11)
[2017-03-02] MEDS: DOCUSATE SODIUM 50 MG/SENNA 8.6 MG TAB PO SCH ×2 (08:27→22:11)
[2017-03-02] MEDS ORDERED: MOXIFLOXACIN HYDROCHLORIDE 400 MG TAB PO SCH (09:00)
[2017-03-02] MEDS ORDERED: MINOCYCLINE HCL 100 MG CAP PO SCH (09:00)
--- NOTE | 2017-03-02 11:44 | PD.WCN.NOT ---
Wound Consult Description: Wound consult ordered by for left heel Communicated with: Cristy YORK Martin, Recommendation: 1) Cleanse Suture incisions and Left Calcaneus (heel) with normal saline ,pat dry 2) Apply skin prep to radha wounds 3) Cover suture with adaptic gauze cover with dry dressing change daily.Date and sign 4) Left Calcaneus (heel) Apply 2mm thick Santyl to wound base/soft eschar cover with small fluffed moistened gauze ,Secure with Foam or dry dressing change daily.Date and sign. 5) Follow up with out patient wound center. Additional Information: Patient was seen today on by public relations writer.Nurse Cristy unavailable at this time.Assessment findings patient has 2 surgical wound that have intact sutures.L anterior cannon incision measures 6.2cm x 0.2cm 9 intact sutures no odor or S&S of infection .L great toe measures 0.2cm x 3.5cm x intact sutures no odor nor drainage.Suture lines cleansed with normal saline pat dry covered with Xeroform gauze secured with dry dressing.2 intact scabs noted to L forearm left open to air.Left Calcaneus present 2.8cm x 2.3cm x soft intact black eschar circumferential in shape.Painful to touch ,periwound intact no drainage or odor noted.Eschar is soft and boggy.cleansed with normal saline skin prep to periwound fluffed moist gauze applied to wound base covered with gentle foam dressing secured with rolled gauze.Santyl ordered Nurse will apply to wound base when available. Vibha Judge [facility] Mar 02, 2017 11:44
[2017-03-02] MEDS ORDERED: COLLAGENASE OINT 30 GM TUBE TOPICAL ONE (16:00)
[2017-03-02] MEDS ORDERED: TAMSULOSIN HCL 0.4 MG CAP PO SCH (21:00)
[2017-03-03] VITALS: BP 99/56; PULSE 63; RESP 20; TEMP 98.2; O2SAT 95
[2017-03-03 00:47] LABS: HEMATOCRIT 31.7 % (39.0-51.0); HEMOGLOBIN 10.5 GM/DL (13.0-17.0); MEAN CELL VOLUME 82.6 FL (80.0-100.0); MEAN CORPUSCULAR HEMOGLOBIN 27.4 PG (27.0-34.0); MEAN CORPUSCULAR HGB CONC 33.1 % (32.0-36.0); MEAN PLATELET VOLUME 8.4 FL (7.0-11.0); PLATELET COUNT 296 TH/MM3 (150-450); RED BLOOD COUNT 3.83 MIL/MM3 (4.50-5.90); RED CELL DISTRIBUTION WIDTH 16.1 % (11.6-17.2); WHITE BLOOD COUNT 10.6 TH/MM3 (4.0-11.0)
[2017-03-03] MEDS: CEFEPIME INJ 2,000 MG in SODIUM CHLORIDE 0.9% INJ 100 ML IV SCH (01:54)
[2017-03-03 04:00] VITALS: BP 115/58; PULSE 60; RESP 20; TEMP 97.8; O2SAT 95
[2017-03-03] MEDS: AZITHROMYCIN INJ 500 MG in SODIUM CHLOR 0.9% 250 ML INJ 250 ML IV SCH (05:40)
[2017-03-03 08:00] VITALS: BP 94/53; PULSE 65; RESP 18; TEMP 97; O2SAT 93
[2017-03-03] MEDS: INSULIN ASPART SUPPLEMENTAL SCALE SQ SCH ×2 (08:00→12:00)
[2017-03-03 08:39] LABS: AUTOMATED NEUTROPHIL # 6.6 TH/MM3 (1.8-7.7); BASOPHIL # 0.1 TH/MM3 (0-0.2); BASOPHIL % 1.1 % (0.0-2.0); EOSINOPHIL # 0.5 TH/MM3 (0-0.4); EOSINOPHIL % 5.1 % (0.0-4.0); HEMATOCRIT 31.3 % (39.0-51.0); HEMOGLOBIN 10.4 GM/DL (13.0-17.0); LYMPH % 16.3 % (9.0-44.0); LYMPHOCYTE # 1.6 TH/MM3 (1.0-4.8); MEAN CELL VOLUME 82.6 FL (80.0-100.0); MEAN CORPUSCULAR HEMOGLOBIN 27.4 PG (27.0-34.0); MEAN CORPUSCULAR HGB CONC 33.2 % (32.0-36.0); MEAN PLATELET VOLUME 8.1 FL (7.0-11.0); MONO % 8.5 % (0.0-8.0); MONOCYTE # 0.8 TH/MM3 (0-0.9); PLATELET COUNT 257 TH/MM3 (150-450); RED BLOOD COUNT 3.79 MIL/MM3 (4.50-5.90); RED CELL DISTRIBUTION WIDTH 16.4 % (11.6-17.2); WHITE BLOOD COUNT 9.6 TH/MM3 (4.0-11.0)
[2017-03-03] MEDS: SODIUM CHLORIDE 0.9% FLUSH 10 ML FLUSH IV FLUSH SCH (09:00)
[2017-03-03] MEDS: hydrALAZINE HCL 25 MG TAB PO SCH (09:00)
[2017-03-03] MEDS: CARVEDILOL 12.5 MG TAB PO SCH (09:00)
[2017-03-03] MEDS: LISINOPRIL 10 MG TAB PO SCH (09:00)
[2017-03-03 09:10] LABS: BICARBONATE 26.1 MEQ/L (21.0-32.0); CALCIUM 8.3 MG/DL (8.5-10.1); CREATININE 1.01 MG/DL (0.60-1.30)
[2017-03-03] MEDS: CITALOPRAM HYDROBROMIDE 20 MG TAB PO SCH (09:21)
[2017-03-03] MEDS: DOCUSATE SODIUM 50 MG/SENNA 8.6 MG TAB PO SCH (09:21)
[2017-03-03] MEDS: GABAPENTIN 300 MG CAP PO SCH (09:22)
[2017-03-03] MEDS: FINASTERIDE 5 MG TAB PO SCH (09:22)
[2017-03-03] MEDS: ATORVASTATIN 20 MG TAB PO SCH (09:22)
[2017-03-03 11:48] VITALS: BP 128/57; PULSE 64; RESP 17; TEMP 96.9; O2SAT 92
--- NOTE | 2017-03-03 13:42 | HHI.PR ---
Subjective Remarks The patient was eating lunch. He had no acute complaints. He said he had a little bit of foot pain but the pain medications were working. He is not sure why he is anemic. He says he has left-sided weakness from the stroke. He did not know he had pneumonia. Objective Vitals Vital Signs Date Time Temp Pulse Resp B/P (MAP) Pulse Ox O2 Delivery O2 Flow Rate FiO2 03/03/17 11:48 96.9 64 17 128/57 (80) 92 03/03/17 08:00 97.0 65 18 94/53 (67) 93 03/03/17 08:00 93 Nasal Cannula 2.00 03/03/17 04:00 97.8 60 20 115/58 (77) 95 03/03/17 00:00 98.2 63 20 99/56 (70) 95 03/02/17 23:46 65 03/02/17 22:15 Nasal Cannula 2.00 03/02/17 22:08 97.3 65 18 135/67 99 03/02/17 20:00 97.8 74 20 121/63 (82) 98 03/02/17 19:49 97 Nasal Cannula 03/02/17 19:47 77 03/02/17 18:50 97.0 70 15 153/70 98 03/02/17 18:35 97.0 70 16 155/70 95 03/02/17 16:00 96.1 73 18 124/58 (80) 97 03/02/17 14:05 96.6 100 16 100/44 96 03/02/17 13:50 96.9 66 16 119/49 98 I/O 03/02/17 03/02/17 03/02/17 03/03/17 03/03/17 03/03/17 07:00 15:00 23:00 07:00 15:00 23:00 Intake Total 240 ml 482 ml 752 ml 480 ml Balance 240 ml 482 ml 752 ml 480 ml Intake Oral 240 ml 480 ml 480 ml Packed Cells 750 ml Blood Product IV Normal Saline Flush 2 ml 2 ml # Voids 3 5 # Bowel Movements 1 Result Diagram: 03/03/1718 03/03/1718 Imaging Last Impressions Chest X-Ray 03/02/17 0241 Signed Impressions: Service Date/Time: February 03:05 - CONCLUSION: 1. Hyperinflation suggesting COPD. 2. Right upper lobe infiltrate. Jovanni Kay Jr., MD Head CT 03/02/17 0000 Signed Impressions: Service Date/Time: February 03:00 - CONCLUSION: No acute disease. Jovanni Kay Jr., MD Objective Remarks GENERAL: Resting comfortably. SKIN: Left heel ulceration without signs of active infection. HEAD: 3 cm abrasion with surrounding ecchymoses on the left forehead. EYES: Pupils equal round and reactive. Extraocular motions intact. No scleral icterus. No injection or drainage. ENT: Nose without bleeding, purulent drainage or septal hematoma. Throat without erythema, tonsillar hypertrophy or exudate. Uvula midline. Airway patent. NECK: Trachea midline. No JVD or lymphadenopathy. Supple, nontender, no meningeal signs. CARDIOVASCULAR: Regular rate and rhythm without murmurs, gallops, or rubs. RESPIRATORY: Scattered rhonchi. GASTROINTESTINAL: Abdomen soft, non-tender, nondistended. No hepato-splenomegaly , or palpable masses. No guarding. MUSCULOSKELETAL: Extremities without clubbing, cyanosis, or edema. Left great toe partial amputation with sutures intact. Incision clean/dry/intact without drainage. No surrounding erythema or signs of infection. NEUROLOGICAL: Awake and alert. Cranial nerves II through XII intact. Motor and sensory grossly within normal limits. Five out of 5 muscle strength in all muscle groups. Normal speech. PSYCH: Mood and affect appropriate. Procedures None Medications and IVs Current Medications Medications (Trade) Dose Ordered Sig/Di Route Start Time Stop Time Status Last Admin (NS Flush) 2 ml UNSCH PRN IV FLUSH 03/02/17 02:45 (NS Flush) 2 ml BID IV FLUSH 03/02/17 09:00 03/02/17 08:27 (Zofran Inj) 4 mg Q6H PRN IVP 03/02/17 02:45 (Tylenol) 650 mg Q6H PRN PO 03/02/17 02:45 ([place] 5-325 Mg) 1 tab Q4H PRN PO 03/02/17 02:45 03/02/17 12:38 (Narcan Inj) 0.4 mg UNSCH PRN IV PUSH 03/02/17 02:45 (Rubia-Colace) 1 tab BID PO 03/02/17 09:00 03/03/17 09:21 (Milk Of Magnnakita Liq) 30 ml Q12H PRN PO 03/02/17 02:45 (Senokot) 17.2 mg Q12H PRN PO 03/02/17 02:45 (Dulcolax Supp) 10 mg DAILY PRN RECTAL 03/02/17 02:45 (Coreg) 25 mg BID PO 03/02/17 09:00 03/02/17 22:11 (CeleXA) 20 mg DAILY PO 03/02/17 09:00 03/03/17 09:21 (Apresoline) 25 mg BID PO 03/02/17 09:00 03/02/17 22:11 (Prinivil) 10 mg DAILY PO 03/02/17 09:00 (Flomax) 0.4 mg HS PO 03/02/17 21:00 03/02/17 22:11 (Proscar) 5 mg DAILY PO 03/02/17 09:00 03/03/17 09:22 (Lipitor) 20 mg DAILY PO 03/02/17 09:00 03/03/17 09:22 (Neurontin) 300 mg BID PO 03/02/17 09:00 03/03/17 09:22 (D50w (Vial) Inj) 50 ml UNSCH PRN IV PUSH 03/02/17 03:00 (Glucagon Inj) 1 mg UNSCH PRN OTHER 03/02/17 03:00 (NovoLOG SUPPLEMENTAL SCALE) 1 ACHS SLIDING SCALE SQ 03/02/17 08:00 03/02/17 22:12 Azithromycin 500 mg/Sodium Chloride 250 ml @ 250 mls/hr Q24H IV 03/02/17 05:00 03/03/17 05:40 (Duoneb Neb) 1 ampule Q4HR NEB PRN NEB 03/02/17 04:00 Cefepime HCl 2000 mg/Sodium Chloride 100 ml @ 200 mls/hr Q12H IV 03/02/17 14:45 03/03/17 01:54 A/P Assessment and Plan Symptomatic anemia H&H 7.2/21.8, improved following two units red blood cells. Labs indicative of anemia of chronic disease. - hemoglobin is stable. Repeat CBC in 3-5 days. - Hemoccult pending. Healthcare associated pneumonia Patient with leukocytosis. Discharged from the hospital one week prior to admission, currently residing in rehabilitation facility. Chest x-ray significant for mild right upper lobe infiltrate. - change cefepime/ azithromycin to Levaquin PO. - DuoNebs and oxygen as needed. - Blood cultures and sputum culture pending. Diabetic wound/status post partial amputation left great toe secondary to infection - Antibiotics as above. Was on minocycline and moxifloxacin at SNF. Will be d/c on minocycline and Levaquin. - Consult wound care. Recommendations appreciated. - follow-up as scheduled. Fall/ CVA Patient with hematoma/abrasion on left forehead. Denies LOC. Head CT negative. Has had a recent CVA with left-sided weakness. - PT. - d/c to SNF. Diabetes mellitus Well controlled. - SSI. - diabetic diet. PPx: SCDs Discharge Planning D/c to SNF Discharge time > 30 minutes Benjamin Rose DO Mar 03, 2017 13:42
[2017-03-03] MEDS ORDERED: LEVA750T9 PO (13:57)
--- NOTE | 2017-03-03 13:58 | HHI.DCPOC ---
Discharge Care Plan Diagnosis: (1) Anemia (2) Pneumonia (3) S/P foot surgery Goals to Promote Your Health * To prevent worsening of your condition and complications * To maintain your health at the optimal level Directions to Meet Your Goals Take your medications as prescribed Follow your dietary instruction Follow activity as directed Keep your appointments as scheduled Take your immunizations and boosters as scheduled If your symptoms worsen call your PCP, if no PCP go to Urgent Care Center or Emergency Room Smoking is Dangerous to Your Health. Avoid second hand smoke Call the 24-hour hour crisis hotline for domestic abuse at Benjamin Rose DO Mar 03, 2017 13:58
[2017-03-03] MEDS ORDERED: HYDR-3516 PO (14:00)
[2017-03-03] MEDS ORDERED: COLL30T TOPICAL (14:07)
[2017-03-03 16:00] VITALS: BP 112/60; PULSE 69; RESP 18; TEMP 99.2; O2SAT 93
== END 2017-03-03 19:00 | DRG 811 ==
LOC: NEPC 00:35 → NEDA 02:46 → OBSVTOIN 02:59 → N06A 03:22
PROVIDERS: ADMIT Hospitalist; ATTEND Hospitalist
PROC: 30233N1 Transfusion of Nonautologous Red Blood Cells into Peripheral Vein, Percutaneous Approach (ICD-10-PCS; principal; 2017-03-02)
DX: D64.89 Other specified anemias (principal); J18.9 Pneumonia, unspecified organism; E11.621 Type 2 diabetes mellitus with foot ulcer; Z79.84 Long term (current) use of oral hypoglycemic drugs; J44.0 Chronic obstructive pulmonary disease with (acute) lower respiratory infection; L97.429 Non-pressure chronic ulcer of left heel and midfoot with unspecified severity; G62.9 Polyneuropathy, unspecified; Z89.412 Acquired absence of left great toe; Y95 Nosocomial condition; N40.0 Benign prostatic hyperplasia without lower urinary tract symptoms; K21.9 Gastro-esophageal reflux disease without esophagitis; I25.10 Atherosclerotic heart disease of native coronary artery without angina pectoris; Z95.1 Presence of aortocoronary bypass graft; Z95.0 Presence of cardiac pacemaker; Z86.73 Personal history of transient ischemic attack (TIA), and cerebral infarction without residual deficits; I10 Essential (primary) hypertension; E78.5 Hyperlipidemia, unspecified; S00.81XA Abrasion of other part of head, initial encounter; W19.XXXA Unspecified fall, initial encounter; Z87.891 Personal history of nicotine dependence
CPT/HCPCS: 36430; 70450; 71045; 80048; 80053; 81001; 82607; 82728; 82746; 82948; 83540; 83550; 83690; 83735; 85025; 85027; 86850; 86900; 86901; 86920; 87040; 94150; J0456; J0692; J1815; J1940; J7050; P9016

== ENCOUNTER 2017-08-09 14:04 | Inpatient (IN) ==
[2017-08-27] MEDS ORDERED: guaiFENesin/Dextromethorphan 200 MG/20 MG 10 ML UDC PO PRN (01:22)
[2017-08-27] MEDS ORDERED: Acetaminophen 325 MG Supp RECTAL PRN (01:27)
[2017-08-27] MEDS ORDERED: Dextrose 50% in Water 50 ML Vial IV.PUSH PRN (01:33)
[2017-08-27] MEDS ORDERED: Chlorhexidine Gluconate 2% 1 Pack (2 Cloths) TOPICAL SCH (01:45)
[2017-08-27] MEDS ORDERED: Sodium Chlor 0.9% Inj 500 ML IV.SIG SCH (02:00)
[2017-08-27] MEDS ORDERED: ceFAZolin 2 GM Premix Inj 2 GM/50 ML PIGGYBACK IV.SIG SCH (02:00)
[2017-08-27] MEDS: Sod Chloride 0.9% Inj 1,000 ML IV.SIG SCH ×3 (03:29→23:48)
[2017-08-27] MEDS: Lactobacillus Acidophilus/L. Spores Tablet PO SCH ×2 (08:49→20:12)
[2017-08-27] MEDS: Lisinopril 5 MG Tablet PO SCH (08:49)
[2017-08-27] MEDS: Ferrous Sulfate 325 MG Tablet PO SCH ×2 (08:49→18:04)
[2017-08-27] MEDS: Multivitamin/Minerals Therapeutic Tablet PO SCH (08:50)
[2017-08-27] MEDS: Carvedilol 12.5 MG Tablet PO SCH ×2 (08:50→20:14)
[2017-08-27] MEDS: Citalopram 20 MG Tablet PO SCH (08:50)
[2017-08-27] MEDS: hydrALAZINE 25 MG Tablet PO SCH ×2 (08:51→21:40)
[2017-08-27] MEDS: Polyethylene Glycol 3350 17 GM Packet PO SCH (08:51)
[2017-08-27] MEDS: Ascorbic Acid 500 MG Tablet PO SCH (08:51)
[2017-08-27] MEDS: oxyCODONE/Acetaminophen 10/325 Tablet PO PRN ×2 (08:51→14:29)
[2017-08-27] MEDS: Gabapentin 300 MG Capsule PO SCH ×2 (08:56→20:12)
[2017-08-27 09:25] LABS: Baso % (Auto) 0.4 % (0.0-2.0); Eos % (Auto) 0.1 % (0.0-4.0); Hemoglobin 8.2 gm/dL (13.0-17.0); Lymph # (Auto) 1.1 th/mm3 (1.0-4.8); Lymph % (Auto) 10.4 % (9.0-44.0); Mean Corpuscular HGB Conc 32.9 % (32.0-36.0); Mean Corpuscular Hemoglobin 26.8 pg (27.0-34.0); Mean Corpuscular Volume 81.6 fL (80.0-100.0); Mean Platelet Volume 8.4 fL (7.0-11.0); Mono # (Auto) 0.8 th/mm3 (0.0-0.9); Mono % (Auto) 7.4 % (0.0-8.0); Neut # (Auto) 8.7 th/mm3 (1.8-7.7); Neut % (Auto) 81.7 % (16.0-70.0); Platelet Count 253 th/mm3 (150-450); Red Blood Count 3.07 mil/mm3 (4.50-5.90); Red Cell Distribution Width 17.5 % (11.6-17.2); White Blood Count 10.7 th/mm3 (4.0-11.0)
[2017-08-27] MEDS: Insulin NovoLOG Aspart Correctional Sugar Inj SQ SCH ×4 (09:53→21:38)
--- NOTE | 2017-08-27 11:28 | P.PN ---
Subjective Interval history: Nursing does report the patient had a fever yesterday and this is confirmed to be charted around 6:10 PM yesterday 101.9. Patient himself is a poor historian when I asked him if he had a new cough or felt feverish, he says no. Upon exiting the room he starts demonstrating a really wet profound cough. Says that his main concern is the pain in his right stump given that he is BKA on the right now. Physical Exam Vital signs: Vital Signs 08/27/17 03:44 08/27/17 04:00 08/27/17 08:00 Temperature 97.7 F 98.5 F 98.0 F Pulse Rate 64 81 77 Respiratory Rate 16 18 16 Blood Pressure 163/71 H 152/65 H Pulse Oximetry 94 L 94 L 94 L Intake & Output 08/26/17 08/27/17 08/27/17 18:59 06:59 18:59 Intake Total 0 / 0 Output Total 400 / 400 Balance -400 / -400 Weight 50 kg Intake: Oral 0 / 0 Output: Urine 400 / 400 Other: # Incontinent Voids 1 Narrative: Coarse breath sounds bilaterally with unlabored breathing, right stump and gauze dressing with no obvious cellulitis protruding or leakage noted surrounding the dressing stump examined unwrapped, stitches and incision looks good, clean, normal skin color Results - Labs CBC & Chem 7: 08/27/17 08:20 08/26/17 12:40 Laboratory Results - last 24 hr 08/26/17 08/26/17 08/26/17 12:40 12:40 17:50 WBC 13.2 H RBC 3.91 L Hgb 10.3 L Hct 32.6 L MCV 83.2 MCH 26.4 L MCHC 31.8 L RDW 18.2 H Plt Count 317 D MPV 8.5 Neut % (Auto) 86.7 H Lymph % (Auto) 6.9 L [place] % (Auto) 5.9 Eos % (Auto) 0.1 Baso % (Auto) 0.4 Neut # (Auto) 11.5 H Lymph # (Auto) 0.9 L [place] # (Auto) 0.8 Eos # (Auto) 0.0 Baso # (Auto) 0.0 CBC Comment DIFF FINAL WBC Differential Differential Comment Sodium 138 Potassium 4.6 Chloride 101 Carbon Dioxide 26.4 Anion Gap 11 BUN 37 H Creatinine 1.58 H Estimated GFR 43 L POC Glucose Random Glucose 104 Lactic Acid Calcium 8.3 L Urine Color YELLOW Urine Turbidity CLEAR Urine pH 7.0 Ur Specific [place] 1.014 Urine Protein NEG Urine Glucose (UA) NEG Urine Ketones NEG Urine Occult Blood SMALL H Urine Nitrite NEG Urine Bilirubin NEG Urine Urobilinogen LESS THAN 2 Ur Leukocyte Esterase NEG Urine RBC 19 H Urine WBC 5 Amorphous Sediment RARE Urine Mucus FEW H Micro UA Comment CULT NOT INDICATED 08/26/17 08/27/17 08/27/17 20:32 08:20 08:46 WBC 10.7 RBC 3.07 L Hgb 8.2 L Hct 25.0 L MCV 81.6 MCH 26.8 L MCHC 32.9 RDW 17.5 H Plt Count 253 MPV 8.4 Neut % (Auto) 81.7 H Lymph % (Auto) 10.4 [place] % (Auto) 7.4 Eos % (Auto) 0.1 Baso % (Auto) 0.4 Neut # (Auto) 8.7 H Lymph # (Auto) 1.1 [place] # (Auto) 0.8 Eos # (Auto) 0.0 Baso # (Auto) 0.0 CBC Comment WBC Differential . Differential Comment Auto diff final Sodium Potassium Chloride Carbon Dioxide Anion Gap BUN Creatinine Estimated GFR POC Glucose 175 H Random Glucose Lactic Acid 1.0 Calcium Urine Color Urine Turbidity Urine pH Ur Specific [place] Urine Protein Urine Glucose (UA) Urine Ketones Urine Occult Blood Urine Nitrite Urine Bilirubin Urine Urobilinogen Ur Leukocyte Esterase Urine RBC Urine WBC Amorphous Sediment Urine Mucus Micro UA Comment Assessment and Plan - Plan New fever -Ordering blood cultures and chest x-ray and UA. White count is normal. Will need to look at stump wound after being undressed. Severe anemia with GI bleed: Acute -GI consulted during this hospitalization -S/P EGD 08/10 showed gastric Ulcer, severe gastritis and duodenitis - strongly advised to avoid all NSAIDs -Continue PP, iron, and may continue Plavix now per GI Acute kidney injury superimposed on chronic kidney disease stage III: secondary to prerenal component from dehydration, GI bleed plus NSAID use -Creatinine continues to be stable and not worsening Peripheral vascular disease: status post left AKA, on Plavix. 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 Hypertension: chronic -continue Coreg and lisinopril -hydralazine COPD: Chronic, stable, quit smoking 8 months ago. -Recently diagnosed with pneumonia, was prescribed Levaquin; completed treatment -Stable Diabetes type 2: chronic -DC'ed metformin with GARCIA. -started on levemir -ADA diet. -Monitor Accu-checks and cover with SSI History of BPH: No urinary symptoms at present. -Continue on Flomax and Proscar. DVT prophylaxis: On Plavix. Avoid mechanical prophylaxis with PAD; avoid chemoprophylaxis with GI bleed and anemia Discharge Planning when cleared by vascular surgery.
--- NOTE | 2017-08-27 12:59 | XR ---
EXAM DATE: 08/27/2017 12:56 PM EDT AGE/SEX: 77 years / Male INDICATIONS: Fever CLINICAL DATA: This is the patient's subsequent encounter. Patient reports that signs and symptoms h ave been present for 4 - 6 days and indicates a pain score of 0/10. MEDICAL/SURGICAL HISTORY: . Cardiovascular disease. Hypertension. Diabetes. Prostate cancer. . CABG. Pacemaker. COMPARISON: [facility] [place], CHEST SINGLE AP, 03/02/2017. . FINDINGS: Minimal new parenchymal changes left base. Right lung clear. Pacemaker left chest. The heart and pulmonary vascularity are normal. History of previous bypass CONCLUSION: Minimal new parenchymal changes left base Electronically signed by: Vishnu Andrade MD 08/27/2017 12:58 PM EDT
--- NOTE | 2017-08-27 13:43 | P.PNCA ---
- Note Subjective/Hospital Course:: 08/27/2017 Patient is status post right BKA Incision clean and dry Dressing removed Will redressed daily and from my point patient can be discharged any time barring any medical issues Stitches will remain in for about total of 3 weeks Objective:: Vital Signs - 24 hr 08/27/17 03:44 08/27/17 04:00 08/27/17 08:00 Temperature 97.7 F 98.5 F 98.0 F Pulse Rate 64 81 77 Respiratory Rate 16 18 16 Blood Pressure 163/71 H 152/65 H Pulse Oximetry 94 L 94 L 94 L Labs:: Laboratory Results - last 12 hr 08/27/17 08/27/17 08/27/17 08:20 08:46 12:40 WBC 10.7 RBC 3.07 L Hgb 8.2 L Hct 25.0 L MCV 81.6 MCH 26.8 L MCHC 32.9 RDW 17.5 H Plt Count 253 MPV 8.4 Neut % (Auto) 81.7 H Lymph % (Auto) 10.4 [place] % (Auto) 7.4 Eos % (Auto) 0.1 Baso % (Auto) 0.4 Neut # (Auto) 8.7 H Lymph # (Auto) 1.1 [place] # (Auto) 0.8 Eos # (Auto) 0.0 Baso # (Auto) 0.0 WBC Differential . Differential Comment Auto diff final POC Glucose 175 H 146 H Result Diagrams: 08/27/17 08:20 08/26/17 12:40
[2017-08-27 16:20] LABS: Bilirubin,Urine Negative (Negative); Clarity,Urine Clear (Clear); Color,Urine Yellow (Yellw/Straw); Glucose,Urine (UA) 50 mg/dL (Negative); Leukocyte Esterase,Urine Negative (Negative); Mucus,Urine Few /lpf (Occasional); Nitrite,Urine Negative (Negative); Specific Gravity,Urine 1.012 (1.002-1.035)
[2017-08-27] MEDS ORDERED: Insulin Detemir Inj 1,000 UNIT/10 ML Vial SQ SCH (21:00)
[2017-08-27] MEDS ORDERED: Mirtazapine 15 MG Tablet PO SCH (21:00)
[2017-08-28] MEDS: Insulin NovoLOG Aspart Correctional Sugar Inj SQ SCH (08:00)
[2017-08-28] MEDS: Polyethylene Glycol 3350 17 GM Packet PO SCH (09:38)
[2017-08-28] MEDS: Lactobacillus Acidophilus/L. Spores Tablet PO SCH (09:40)
[2017-08-28] MEDS: Ascorbic Acid 500 MG Tablet PO SCH (09:41)
[2017-08-28] MEDS: Citalopram 20 MG Tablet PO SCH (09:41)
[2017-08-28] MEDS: Carvedilol 12.5 MG Tablet PO SCH (09:41)
[2017-08-28] MEDS: Multivitamin/Minerals Therapeutic Tablet PO SCH (09:42)
[2017-08-28] MEDS: hydrALAZINE 25 MG Tablet PO SCH (09:42)
[2017-08-28] MEDS: Gabapentin 300 MG Capsule PO SCH (09:42)
[2017-08-28] MEDS: Sod Chloride 0.9% Inj 1,000 ML IV.SIG SCH (09:43)
[2017-08-28] MEDS: Lisinopril 5 MG Tablet PO SCH (09:43)
[2017-08-28] MEDS: Ferrous Sulfate 325 MG Tablet PO SCH (09:43)
[2017-08-28] MEDS: oxyCODONE/Acetaminophen 10/325 Tablet PO PRN (09:52)
--- NOTE | 2017-08-28 10:21 | P.DS ---
Date of admission: 08/09/17 15:59 Primary care physician: Dick Tan Brief History from admission: Patient is a 77-year-old male resident of [facility] facility has been a resident note from January 2017 mostly wheelchair-bound and undergoing rehab and currently is in the process of getting left lower extremity prosthesis. 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 Patient was sent here for abnormal results specifically a low hemoglobin hematocrit. Patient is a little uncooperative with history taking. He denies any pain nausea vomiting but states very poor p.o. appetite. States some loose stools, noted some black stools. He denies any fever and chills. When questioned about being on Levaquin he did mention that he was having cough and on review of the EMR was prescribed Levaquin August 05 for 10 days. On exam was noted to have a left upper extremity PICC line and patient is unclear-and per patient states this was used recently. However there are no IV meds on list DS: Medications - Discharge Medications Prescriptions: atorvastatin 40 mg PO HS #30 tab oxycodone-acetaminophen 1 tab PO Q6HR PRN #24 tab PRN Reason: Acute Pain DS: Summary Hospital Course: Patient was admitted. GI was consulted, underwent EGD which showed some gastritis and duodenitis. Blood levels remained stable. Was cleared to return to antiplatelet therapy per GI. 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 Patient did have a transient self-limiting fever. Was tolerating p.o. intake well. Patient was noted to have transient worsening of his renal function which then returned to baseline. His metformin had been discontinued due to the high risk of lactic acidosis given his comorbidities. Patient has met maximal benefit from hospitalization and is clinically stable for discharge. Patient is having significant pain caused by his surgery which will last more than 3 days. I believe that it is medically necessary to treat patients pain because it is affecting patients ability to function at his new baseline. - Time Spent with Patient Total time spent providing and/or coordinating discharge services: Less than 30 minutes Exam Vital signs: Vital Signs 08/27/17 12:00 08/27/17 16:00 08/27/17 20:00 Temperature 97.8 F 97.3 F L 98.4 F Pulse Rate 62 61 60 Respiratory Rate 17 16 16 Blood Pressure 133/74 141/63 H 128/61 Pulse Oximetry 95 95 92 L 08/28/17 00:00 08/28/17 00:14 Temperature 98.3 F Pulse Rate 64 64 Respiratory Rate 16 Blood Pressure 125/60 Pulse Oximetry 96 Intake & Output 08/27/17 08/28/17 08/28/17 18:59 06:59 18:59 Intake Total 1000 / 1000 1240 / 1240 1000 / 1000 Output Total 850 / 850 Balance 1000 / 1000 390 / 390 1000 / 1000 Intake: IV 1000 / 1000 1000 / 1000 1000 / 1000 NS Inj 1,000 ML @ 100 mls/hr IV 1000 / 1000 1000 / 1000 1000 / 1000 .SIG .Q10H IVNAA Rx#:[id number] Oral 240 / 240 Output: Urine 850 / 850 Narrative: Lying in bed, awake, alert, no acute distress Lungs are clear bilaterally, unlabored breathing Right BKA stump in dressing Results Procedures completed during hospitalization: Right BKA Labs on day of discharge: Labs from last 24 hours 08/28/17 08/27/17 08/27/17 09:34 20:08 18:08 POC Glucose 153 H 156 H 160 H Urine Color Urine Clarity Urine pH Ur Specific Jessie Urine Protein Urine Glucose (UA) Urine Ketones Urine Occult Blood Urine Nitrate Urine Bilirubin Urine Urobilinogen Ur Leukocyte Esterase Urine RBC Urine WBC Urine Mucus Micro UA Comment Urine Culture Comments 08/27/17 08/27/17 14:10 12:40 POC Glucose 146 H Urine Color Yellow Urine Clarity Clear Urine pH 7.0 Ur Specific Jessie 1.012 Urine Protein 30 H Urine Glucose (UA) 50 Urine Ketones Trace Urine Occult Blood Small H Urine Nitrate Negative Urine Bilirubin Negative Urine Urobilinogen Less than 2 Ur Leukocyte Esterase Negative Urine RBC 5 H Urine WBC 3 Urine Mucus Few H Micro UA Comment Cath-culture not ind Urine Culture Comments Cath-cult not ind - Impressions ITS Impressions Chest X-Ray 08/27/17 00:00 CONCLUSION: Minimal new parenchymal changes left base Discharge Plan - Discharge Disposition Patient Disposition: Discharge to SNF - Discharge Condition Condition: Fair - Discharge Order Discharge Orders: Discharge Order (Routine); Ordered 08/28/17 Ordered By: Toni Carroll - Physicians Team Primary Care Provider: Dick Tan Attending Provider: Toni Carroll Other Providers: Jamin Corrigan MD ; Amari Bowens MD ; Beatrice Valladares DPM - Rxs /Orders / Referrals /Forms Prescriptions: New ascorbic acid (vitamin C) [Vitamin C] 500 mg Tablet 500 mg PO DAILY RF: 0 atorvastatin 40 mg Tablet 40 mg PO HS Qty: 30 RF: 0 hydralazine 25 mg Tablet 25 mg PO Q12HR RF: 0 insulin detemir U-100 [Levemir U-100 Insulin] 100 unit/mL Solution 8 unit Sub-Q HS RF: 0 lisinopril 5 mg Tablet 5 mg PO DAILY RF: 0 oxycodone-acetaminophen 5-325 mg Tablet 1 tab PO Q6HR PRN (Reason: Acute Pain) Qty: 24 RF: 0 polyethylene glycol 3350 17 gram Powder In Packet 17 gm PO DAILY RF: 0 tamsulosin 0.4 mg Capsule,Extended Release 24hr 0.4 mg PO HS RF: 0 Continue albuterol sulfate 0.63 mg/3 mL Solution For Nebulization 0.63 mg INHALATION Q6HR NEB PRN (Reason: Wheezing) ascorbic acid (vitamin C) 500 mg Tablet 500 mg PO DAILY carvedilol 25 mg Tablet 25 mg PO BID citalopram 20 mg Tablet 20 mg PO DAILY clopidogrel 75 mg Tablet 75 mg PO DAILY dextromethorphan-guaifenesin 5-100 mg/5 mL Liquid 5 ml PO Q6HR PRN (Reason: Cough) docusate sodium [Colace] 100 mg Capsule 100 mg PO Q12HR ferrous sulfate 325 mg (65 mg iron) Tablet 325 mg PO BIDPC finasteride 5 mg Tablet 5 mg PO DAILY fluticasone-vilanterol 100-25 mcg/dose Blister With Device 1 inh INHALATION DAILY gabapentin 300 mg Capsule 300 mg PO BID hydralazine 25 mg Tablet 25 mg PO BID Lactobacillus acidophilus Capsule 1 cap PO BID mirtazapine 15 mg Tablet 22.5 mg PO HS multivitamin with minerals [Multiple Vitamin-Minerals] Tablet 1 tab PO DAILY ondansetron 4 mg Tablet,Disintegrating 4 mg PO Q8HR PRN (Reason: Nausea And Vomiting) sennosides-docusate sodium 8.6-50 mg Tablet 1 tab PO HS PRN (Reason: Constipation) Discontinued atorvastatin 20 mg Tablet 20 mg PO HS hydrocodone-acetaminophen 5-325 mg Tablet 1 tab PO Q6HR PRN (Reason: Pain) levofloxacin 500 mg Tablet 500 mg PO DAILY lisinopril 10 mg Tablet 10 mg PO DAILY metformin 500 mg Tablet 500 mg PO BIDPC tamsulosin 0.4 mg Capsule,Extended Release 24hr 0.4 mg PO HS Referrals: Dick Tan MD [Primary Care Provider] - See Instructions Jamin Corrigan MD [Physician] - See Instructions
--- NOTE | 2017-09-13 18:21 | MP ---
cc: Jamin Corrigan MD, Slobodan MD DATE OF OPERATION: 08/24/2017 PREOPERATIVE DIAGNOSIS: Gangrene of both feet, right more than the left. POSTOPERATIVE DIAGNOSIS: Gangrene of both feet, right more than the left. OPERATIVE PROCEDURE: Right below-knee amputation. SURGEON: Jamin Corrigan MD ANESTHESIA: General. ESTIMATED BLOOD LOSS: 100 mL PROCEDURE IN DETAIL: The patient prepped and draped in usual fashion and area marked with indelible marker. Incision made anteriorly over the tibial skin carried laterally down to create a posterior flap and then completed coming around with a 10 blade. This is deepened with the cautery medially and laterally down to the fibula and then anterior tibial artery and veins are clamped, divided, and ligated with 2-0 Vicryl. Medially incision is deepened with cautery and then the fascia is incised laterally. The bone is now dissected with periosteal elevator, about an inch and a half above the level of the original skin incision and then transected with oscillating saw. Once the tibia and fibula transected, a large amputation knife is used to complete the posterior flap and then remove the specimen. The area irrigated with saline. Meticulous hemostasis obtained with 0 Vicryl [id number] and cautery. Tourniquet is released after about 1-1/2 minutes. The area irrigated with saline. Posterior flap turned anteriorly and the incision is closed with 0 Vicryl deep layer of fascia at the fascia, superficial layer of fascia to fascia and skin is closed with 2-0 Prolene interrupted stitches. The patient tolerated the procedure well. MD SUGAR Crump/ , 06:04 PM , 06:20 PM
== END 2017-08-28 16:39 ==
LOC: N07 15:59
PROVIDERS: ADMIT Hospitalist; ATTEND Hospitalist

== ENCOUNTER 2017-09-05 17:40 | Inpatient (IN) ==
[2017-09-05] MEDS ORDERED: Pantoprazole Inj 80 MG in Sodium Chlor 0.9% Inj 50 ML IV.SIG ONE (18:32)
--- NOTE | 2017-09-05 18:47 | ED ---
HPI General Chief complaint: Recheck/Abnormal Lab/Rx Stated complaint: Medical/[facility]/Med 1 Time Seen by Provider: 09/05/17 18:01 Source: patient, RN notes reviewed and old records reviewed Mode of arrival: EMS Limitations: other (poor historian, lethargic) History of Present Illness HPI Narrative: 77 year old male presents to the emergency department for low hemoglobin/hematocrit from [facility]. Patient was recently discharged on 28 August 2017 after he was admitted for GI bleed. He also had right BKA during his stay. Patient has past medical history of hypertension, type 2 diabetes, depression, BPH, AKA of his left lower extremity secondary to peripheral vascular disease. Patient underwent EGD which showed some gastritis and duodenitis. Blood levels remained stable during his visit. However, during labs today at the nursing facility, and was noticed that he had a hemoglobin of 5.4. The patient is a poor historian, is lethargic and does not answer very many questions. Moderate severity. According to paperwork from facility, patient is a DNR MD complaint: melena Onset (ago): unknown Severity: moderate Relieving factors: none Exacerbating factors: none Context: history of GI bleed Associated symptoms: denies other symptoms Treatments Prior to Arrival: none Related Data Home Medications Medication Instructions Recorded Confirmed ascorbic acid (vitamin C) 500 mg PO DAILY 08/26/17 09/05/17 hydralazine 25 mg PO BID 08/26/17 09/05/17 multivitamin with minerals 1 tab PO DAILY 08/26/17 09/05/17 [Multiple Vitamin-Minerals] ondansetron 4 mg PO Q6HR PRN 08/26/17 09/05/17 aspirin 81 mg PO DAILY 09/05/17 09/05/17 Previous Rx's Medication Instructions Recorded atorvastatin 40 mg PO HS #30 tab 08/28/17 insulin detemir U-100 [Levemir 8 unit SUB-Q HS ml 08/28/17 U-100 Insulin] lisinopril 5 mg PO DAILY tab 08/28/17 oxycodone-acetaminophen 1 tab PO Q6HR PRN #24 tab 08/28/17 polyethylene glycol 3350 17 gm PO DAILY ea 08/28/17 tamsulosin 0.4 mg PO HS cap 08/28/17 Allergies Allergy/AdvReac Type Severity Reaction Status Date / Time iodine Allergy Severe HIVES Verified 09/05/17 18:12 potassium iodide Allergy Severe HIVES Verified 09/05/17 18:12 povidone-iodine Allergy Severe HIVES Verified 09/05/17 18:12 shellfish derived Allergy Severe Rash Verified 09/05/17 18:12 sodium iodide Allergy Severe HIVES Verified 09/05/17 18:12 sodium iodide Allergy Severe HIVES Verified 09/05/17 18:12 Review of Systems ROS Unobtainable All other systems reviewed negative except as stated [facility] Medical History Medical History Anemia (Acute) COPD (chronic obstructive pulmonary disease) (Acute) Cerebral infarction (Acute) Depressed (Acute) GERD (gastroesophageal reflux disease) (Acute) HBP (high blood pressure) (Acute) Neoplasm of prostate (Acute) Pacemaker (Acute) Surgical History Surgical History Amputation of right lower extremity below knee (Acute) Social History Social History Substance History: No History of Abuse Smoking Status: Former smoker Tobacco Type: Cigarettes How Often Do You Have a Drink Containing Alcohol: Never Recent Travel in [facility] within the Last 8 Weeks: No Recent Out of Country Travel within the Last 8 Weeks: No Immunization History Tetanus Immunization: <5 Years Hx Influenza Vaccine This Season: Yes Exam Narrative Exam Narrative: GENERAL: Well-nourished, well-developed elderly male patient, afebrile SKIN: Focused skin assessment warm/dry. Pale HEAD: Normocephalic. Atraumatic EYES: No scleral icterus. No injection or drainage. NECK: Supple, trachea midline. No JVD or lymphadenopathy. CARDIOVASCULAR: Regular rate and rhythm without murmurs, gallops, or rubs. RESPIRATORY: Breath sounds equal bilaterally. No accessory muscle use. Lung sounds clear to auscultation GASTROINTESTINAL: Abdomen soft, non-tender, nondistended. MUSCULOSKELETAL: No cyanosis, or edema. BACK: Nontender without obvious deformity. No CVA tenderness. RECTAL EXAM: No masses or tenderness, stool is black and tarry. Hemoccult is positive. This exam was done with JAYLEN Euceda at bedside. Procedures Hemaprompt Stool Procedural Steps Taken: specimen placed in appropriate test area, developer placed on specimen and control areas and controls appropriately positive and negative Hemaprompt Stool Result: positive Additional Comments: This exam was done with RN at bedside Course Initial Documented Vital Signs Temperature 97.8 F 09/05/17 17:49 Pulse Rate 94 H 09/05/17 17:49 Respiratory Rate 18 09/05/17 17:49 Blood Pressure 103/55 L 09/05/17 17:49 Pulse Oximetry 97 09/05/17 17:49 Last Documented Vital Signs Temperature 97.8 F 09/05/17 17:49 Pulse Rate 94 H 09/05/17 17:49 Respiratory Rate 18 09/05/17 17:49 Blood Pressure 103/55 L 09/05/17 17:49 Pulse Oximetry 97 09/05/17 17:49 Medical Decision Making MDM Narrative Medical decision making narrative: 77-year-old male presents to the emergency department for low hemoglobin by [facility]. Hemoglobin on the labs is 5.4. Patient is pale on exam. EKG does show diffuse ST depression. IBS is obtained. CBC, CMP, PTT, PT/INR are ordered and pending. Patient is given Protonix bolus and drip. Normal saline 125 mL's per hour started. Type and screen is ordered and pending. 3 units PRBCs are ordered and pending. CBC shows leukocytosis of 16.2, Hgb of 5.2, hct of 16.3. CMP shows hyponatremia of 131, BUN 41, creatinine of 1.32. PTT is 23.3. PT/INR is 12.1/ 1.2. Chest x-ray shows trace bibasilar atelectasis and tiny effusion versus scarring left base. Hospitalist is paged for admission. Dr. Hare accepted admission. Differential Diagnosis Differential Diagnosis: GI bleed versus anemia versus medical clearance Medical Records Medical records reviewed: Yes I reviewed the patient's medical records. Lab Data Result diagrams: 09/05/17 18:10 09/05/17 18:10 Lab Results 09/05/17 09/05/17 09/05/17 Range/Units 18:10 18:10 18:10 WBC 16.2 H (4.0-11.0) th/mm3 RBC 1.98 L (4.50-5.90) mil/mm3 Hgb 5.2 L* (13.0-17.0) gm/dL Hct 16.3 L* (39.0-51.0) % MCV 82.2 (80.0-100.0) fL MCH 26.1 L (27.0-34.0) pg MCHC 31.7 L (32.0-36.0) % RDW 18.0 H (11.6-17.2) % Plt Count 434 (150-450) th/mm3 MPV 7.9 (7.0-11.0) fL Prelim Diff (Auto) Slide review pending Neut % (Auto) 79.6 H (16.0-70.0) % Lymph % (Auto) 13.0 (9.0-44.0) % Bladen % (Auto) 6.0 (0.0-8.0) % Eos % (Auto) 0.9 (0.0-4.0) % Baso % (Auto) 0.5 (0.0-2.0) % Neut # (Auto) 12.9 H (1.8-7.7) th/mm3 Lymph # (Auto) 2.1 (1.0-4.8) th/mm3 Bladen # (Auto) 1.0 H (0.0-0.9) th/mm3 Eos # (Auto) 0.1 (0.0-0.4) th/mm3 Baso # (Auto) 0.1 (0.0-0.2) th/mm3 WBC Differential . Diff Scan Auto diff confirmed Differential Comment . Platelet Estimate Normal (Normal) Platelet Morphology Normal (Normal) Ovalocytes 1+ H (None) PT 12.1 H (9.8-11.6) sec INR 1.2 Ratio APTT 23.3 L (24.3-30.1) sec Sodium 131 L (136-145) meq/L Potassium 4.5 (3.5-5.1) meq/L Chloride 93 L (98-107) meq/L Carbon Dioxide 24.1 (21.0-32.0) meq/L Anion Gap 14 (5-15) meq/L BUN 41 H (7-18) mg/dL Creatinine 1.32 H (0.60-1.30) mg/dL Estimated GFR 53 L (>89) mL/min Random Glucose 172 H (74-106) mg/dL Calcium 9.1 (8.5-10.1) mg/dL Total Bilirubin 0.4 (0.2-1.0) mg/dL AST 22 (15-37) U/L ALT 18 (12-78) U/L Alkaline Phosphatase 74 (45-117) U/L Total Protein 6.5 (6.4-8.2) g/dL Albumin 2.3 L (3.4-5.0) g/dL Blood Type Antibody Screen MTS Gel Crossmatch Bld Prod Order Comment 09/05/17 Range/Units 18:10 WBC (4.0-11.0) th/mm3 RBC (4.50-5.90) mil/mm3 Hgb (13.0-17.0) gm/dL Hct (39.0-51.0) % MCV (80.0-100.0) fL MCH (27.0-34.0) pg MCHC (32.0-36.0) % RDW (11.6-17.2) % Plt Count (150-450) th/mm3 MPV (7.0-11.0) fL Prelim Diff (Auto) Neut % (Auto) (16.0-70.0) % Lymph % (Auto) (9.0-44.0) % Bladen % (Auto) (0.0-8.0) % Eos % (Auto) (0.0-4.0) % Baso % (Auto) (0.0-2.0) % Neut # (Auto) (1.8-7.7) th/mm3 Lymph # (Auto) (1.0-4.8) th/mm3 Bladen # (Auto) (0.0-0.9) th/mm3 Eos # (Auto) (0.0-0.4) th/mm3 Baso # (Auto) (0.0-0.2) th/mm3 WBC Differential Diff Scan Differential Comment Platelet Estimate (Normal) Platelet Morphology (Normal) Ovalocytes (None) PT (9.8-11.6) sec INR Ratio APTT (24.3-30.1) sec Sodium (136-145) meq/L Potassium (3.5-5.1) meq/L Chloride (98-107) meq/L Carbon Dioxide (21.0-32.0) meq/L Anion Gap (5-15) meq/L BUN (7-18) mg/dL Creatinine (0.60-1.30) mg/dL Estimated GFR (>89) mL/min Random Glucose (74-106) mg/dL Calcium (8.5-10.1) mg/dL Total Bilirubin (0.2-1.0) mg/dL AST (15-37) U/L ALT (12-78) U/L Alkaline Phosphatase (45-117) U/L Total Protein (6.4-8.2) g/dL Albumin (3.4-5.0) g/dL Blood Type A Positive Antibody Screen Negative MTS Gel Crossmatch See Detail Bld Prod Order Comment Imaging Data Radiologist's impression: ITS Impressions Chest X-Ray 09/05/17 19:23 CONCLUSION: Trace bibasilar atelectasis and tiny effusion versus scarring left base. Discharge Plan Discharge Disposition Patient Disposition: 30 Still Patient Discharge Details Diagnosis: Acute GI bleeding Physicians Team ED Provider: Georges Rios ED Midlevel Provider: Stacy Varela Primary Care Provider: Dick Tan Rxs /Orders / Referrals /Forms Prescriptions: No Action hydralazine 25 mg Tablet 25 mg PO BID RF: 0 ascorbic acid (vitamin C) 500 mg Tablet 500 mg PO DAILY RF: 0 multivitamin with minerals [Multiple Vitamin-Minerals] Tablet 1 tab PO DAILY RF: 0 ondansetron 4 mg Tablet,Disintegrating 4 mg PO Q6HR PRN (Reason: Nausea And Vomiting) RF: 0 polyethylene glycol 3350 17 gram Powder In Packet 17 gm PO DAILY RF: 0 tamsulosin 0.4 mg Capsule,Extended Release 24hr 0.4 mg PO HS RF: 0 lisinopril 5 mg Tablet 5 mg PO DAILY RF: 0 insulin detemir U-100 [Levemir U-100 Insulin] 100 unit/mL Solution 8 unit Sub-Q HS RF: 0 atorvastatin 40 mg Tablet 40 mg PO HS Qty: 30 RF: 0 oxycodone-acetaminophen 5-325 mg Tablet 1 tab PO Q6HR PRN (Reason: Acute Pain) Qty: 24 RF: 0 aspirin 81 mg Tablet,Delayed Release (Dr/Ec) 81 mg PO DAILY RF: 0 Status ED Status: With Doctor
[2017-09-05] MEDS: Sod Chloride 0.9% Inj 1,000 ML IV.CONT SCH (18:49)
[2017-09-05 19:12] LABS: Baso # (Auto) 0.1 th/mm3 (0.0-0.2); Baso % (Auto) 0.5 % (0.0-2.0); Eos # (Auto) 0.1 th/mm3 (0.0-0.4); Eos % (Auto) 0.9 % (0.0-4.0); Lymph # (Auto) 2.1 th/mm3 (1.0-4.8); Mean Corpuscular HGB Conc 31.7 % (32.0-36.0); Mean Corpuscular Hemoglobin 26.1 pg (27.0-34.0); Mean Corpuscular Volume 82.2 fL (80.0-100.0); Mean Platelet Volume 7.9 fL (7.0-11.0); Neut # (Auto) 12.9 th/mm3 (1.8-7.7); Neut % (Auto) 79.6 % (16.0-70.0); Platelet Count 434 th/mm3 (150-450); Red Blood Count 1.98 mil/mm3 (4.50-5.90); White Blood Count 16.2 th/mm3 (4.0-11.0)
[2017-09-05 19:19] LABS: Activated Partial Thrombo Time 23.3 sec (24.3-30.1); INR 1.2 Ratio; Prothrombin Time 12.1 sec (9.8-11.6)
[2017-09-05 19:21] LABS: Hematocrit 16.3 % (39.0-51.0); Hemoglobin 5.2 gm/dL (13.0-17.0)
[2017-09-05 19:43] LABS: Albumin 2.3 g/dL (3.4-5.0); Anion Gap 14 meq/L (5-15); Aspartate Aminotransferase 22 U/L (15-37); Blood Urea Nitrogen 41 mg/dL (7-18); Calcium 9.1 mg/dL (8.5-10.1); Carbon Dioxide 24.1 meq/L (21.0-32.0); Chloride 93 meq/L (98-107); Glomerular Filtration Rate 53 mL/min (>89); Glucose,Random 172 mg/dL (74-106); Potassium 4.5 meq/L (3.5-5.1); Sodium 131 meq/L (136-145)
[2017-09-05 19:44] LABS: Alanine Aminotransferase 18 U/L (12-78)
[2017-09-05 19:46] LABS: Alkaline Phosphatase 74 U/L (45-117); Total Protein 6.5 g/dL (6.4-8.2)
[2017-09-05 19:47] LABS: Ovalocytes 1+; Platelet Estimate Normal (Normal); Platelet Morphology Normal (Normal)
--- NOTE | 2017-09-05 19:48 | XR ---
EXAM DATE: 09/05/2017 7:40 PM EDT AGE/SEX: 77 years / Male INDICATIONS: Shortness of breath. CLINICAL DATA: This is the patient's initial encounter. Patient reports that signs and symptoms have been present for 1 day and indicates a pain score of Nonresponsive. MEDICAL/SURGICAL HISTORY: Non-responsive. Pacemaker. CABG. COMPARISON: C, CHEST 1V SINGLE AP, 08/27/2017. . FINDINGS: There is mild bibasilar atelectasis of. A tiny pleural effusion versus scarring is present on the lef t. Similar findings were seen previously. No pneumothorax. Heart size stable, within normal limits. Patient has had previous median sternotomy and CABG. Cardiac pacer again seen. CONCLUSION: Trace bibasilar atelectasis and tiny effusion versus scarring left base. Electronically signed by: Lg العلي MD 09/05/2017 7:47 PM EDT
[2017-09-05] MEDS ORDERED: Sodium Chlor 0.9% Inj 250 ML IV.SIG SCH (21:00)
--- NOTE | 2017-09-05 21:14 | ECG ---
Date Performed: 09/05/2017 Time Performed: 18:37:15 PTAGE: 77 years EKG: Sinus rhythm WITH SHORT OR INTERVAL ST DEVIATION AND MODERATE T-WAVE ABNORMALITY, CONSIDER LATERAL ISCHEMIA ABNOR MAL ECG Compared to prior electrocardiogram, Sinus rhythm has replaced atrial pacemaker and STT wave changes are present. DOCTOR: Jamie Tuttle Interpretating Date/Time 09/05/2017 21:12:56
[2017-09-06 02:23] LABS: Bilirubin,Urine Negative (Negative); Clarity,Urine Hazy (Clear); Color,Urine Yellow (Yellw/Straw); Glucose,Urine (UA) 50 mg/dL (Negative); Leukocyte Esterase,Urine Negative (Negative); Mucus,Urine Few /lpf (Occasional); Nitrite,Urine Negative (Negative); Specific Gravity,Urine 1.013 (1.002-1.035); Squamous Epithelial Cell,Urine <1 /hpf (0-5)
[2017-09-06] MEDS: Pantoprazole Inj 80 MG in Sodium Chlor 0.9% Inj 100 ML IV.CONT SCH ×2 (02:30→18:02)
[2017-09-06] MEDS: Morphine Inj 4 MG/ML Vial IV.PUSH PRN ×2 (02:53→07:56)
[2017-09-06] MEDS ORDERED: Dextrose 50% in Water 50 ML Vial IV.PUSH PRN (03:20)
--- NOTE | 2017-09-06 03:22 | P.HP ---
History of Present Illness Service: [facility] Primary Care Physician: Dick Tan Chief Complaint: Abnormal laboratory values History of Present Illness: 77-year-old male with a past medical history significant for hypertension, diabetes, depression, BPH, peripheral vascular disease and recent GI bleed discharged on 08/28 was brought to the emergency department from his rehab facility for the evaluation of a low hemoglobin/hematocrit. EGD during previous hospitalization was significant for gastritis and duodenitis. 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 The patient will open his eyes to voice but does not answer questions. He moves his right lower extremity and moans in pain as he does so. His H&H emergency department was 5.2/16.3. Inpatient Certification: I certify that the inpatient services were ordered in accordance with Medicare regulations governing the order. This includes certification that hospital inpatient services are reasonable and necessary and in the case of services not specified as inpatient-only under 42 CFR 419.22(n), that they are appropriately provided as inpatient services in accordance to with the 2-midnight benchmark under 43 CFR 412.3(e) Estimated Total Length of Stay (Days): 3 Plans for Post Hospital Care: SNF Review of Systems unobtainable due to mental condition PMFSH - History History Provided By: Significant Other, Medical Record - Medical History Medical History: Medical History (Last Updated 09/06/17 @ 03:10 by Delmy Hare MD) 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 upon examination Anemia COPD (chronic obstructive pulmonary disease) Cerebral infarction Depressed GERD (gastroesophageal reflux disease) HBP (high blood pressure) Neoplasm of prostate Pacemaker - Surgical History Surgical History: Surgical History (Last Updated 09/05/17 @ 18:11 by Kinsey Serrano) Amputation of right lower extremity below knee - Tobacco History Tobacco Use In Past 30 Days: No Smoking Status: Former smoker Tobacco Type: Cigarettes - Alcohol History How Often Do You Have a Drink Containing Alcohol: Never - Substance Use History Substance History: No History of Abuse - Travel History Recent Travel in the [place] Within the Last 8 Weeks: No Recent Travel Out of the Country Within the Last 8 Weeks: No - Immunization History Tetanus Immunization: <5 Years Hx Influenza Vaccine This Season: Yes Medications and Allergies Active Medications: Active Medications Albuterol (Duoneb Neb (Prn)) 1 ampul NEB Q2HR NEB PRN PRN Reason: shortenss of breath/wheezing Atorvastatin Calcium (Lipitor) 40 mg PO HS [facility] Hydralazine HCl (Apresoline) 25 mg PO BID [facility] Pantoprazole Sodium 80 mg/ (Sodium Chloride) 100 mls @ 10 mls/hr IV.CONT CONT IVANA Sodium Chloride (Ns Inj) 1,000 mls @ 30 mls/hr IV.CONT .Q24H IVANA Last Infusion: 09/06/17 01:40 Dose: 30 mls/hr Sodium Chloride (Ns Inj) 250 mls @ 15 mls/hr IV.SIG ONCE IVANA Stop: 09/06/17 13:39 Lisinopril (Prinivil) 5 mg PO DAILY [facility] Morphine Sulfate (Morphine Inj) 4 mg IV.PUSH Q4H PRN PRN Reason: PAIN 6-10 Last Admin: 09/06/17 02:53 Dose: 4 mg Ondansetron HCl (Zofran Odt) 4 mg PO Q6HR PRN PRN Reason: NAUSEA OR VOMITING Oxycodone/Acetaminophen (Percocet 5/325 Mg) 1 tab PO Q6HR PRN PRN Reason: Acute Pain Sodium Chloride (Ns Flush) 2 ml IV.FLUSH BID [facility] Sodium Chloride (Ns Flush) 2 ml IV.FLUSH PRN PRN PRN Reason: FLUSH AFTER USING IV ACCESS Tamsulosin HCl (Flomax) 0.4 mg PO HS [facility] Allergies Allergy/AdvReac Type Severity Reaction Status Date / Time iodine Allergy Severe HIVES Verified 09/05/17 18:12 potassium iodide Allergy Severe HIVES Verified 09/05/17 18:12 povidone-iodine Allergy Severe HIVES Verified 09/05/17 18:12 shellfish derived Allergy Severe Rash Verified 09/05/17 18:12 sodium iodide Allergy Severe HIVES Verified 09/05/17 18:12 sodium iodide Allergy Severe HIVES Verified 09/05/17 18:12 Home Medications Medication Instructions Recorded Confirmed Type ascorbic acid (vitamin C) 500 mg PO DAILY 08/26/17 09/05/17 History hydralazine 25 mg PO BID 08/26/17 09/05/17 History multivitamin with minerals 1 tab PO DAILY 08/26/17 09/05/17 History [Multiple Vitamin-Minerals] ondansetron 4 mg PO Q6HR PRN 08/26/17 09/05/17 History aspirin 81 mg PO DAILY 09/05/17 09/05/17 History Exam Vital signs: Vital Signs 09/05/17 17:49 09/05/17 21:15 09/05/17 21:45 Temperature 97.8 F 97.3 F L Pulse Rate 94 H 94 H Respiratory Rate 18 14 Blood Pressure 103/55 L 101/51 L Pulse Oximetry 97 100 09/05/17 22:09 09/05/17 23:59 09/06/17 00:02 Temperature 98.4 F 98.4 F Pulse Rate 88 86 87 Respiratory Rate 16 16 Blood Pressure 113/55 L 124/59 L 118/54 L Pulse Oximetry 99 100 09/06/17 00:17 Temperature 98.4 F Pulse Rate 86 Respiratory Rate 16 Blood Pressure 120/59 L Pulse Oximetry Intake & Output 09/05/17 09/05/17 09/06/17 06:59 18:59 06:59 Intake Total 0 / 0 Balance 0 / 0 Weight 49.895 kg Intake: Intake (Blood Product) Amt 0 / 0 Rbc As-3 Leukoreduced Unit 0 / 0 [id number] Rbc As-3 Leukoreduced Unit 0 / 0 [id number] Rbc As-3 Leukoreduced Unit 0 / 0 [id number] Narrative: Gen.: No acute distress Head: Normocephalic. Atraumatic. EENT: Pupils equal round and reactive to light. Nose without drainage. Airway intact. Throat without injection. Cardiovascular: Regular rate and rhythm. No murmurs, rubs or gallops. Respiratory: Lungs clear to auscultation bilaterally. No wheezes or rhonchi. Abdomen: Soft, nontender, nondistended. No peritoneal signs. Musculoskeletal: No gross deformities. No edema. Left AKA, right BKA. Skin: No obvious rashes or erythema. Neuro: Sensory and motor grossly intact. Cranial nerves II through XII grossly intact. Psych: Appropriate mood and affect Results - Labs CBC & Chem 7: 09/05/17 18:10 09/05/17 18:10 Labs: Laboratory Results - last 24 hr 09/05/17 09/05/17 09/05/17 18:10 18:10 18:10 WBC 16.2 H RBC 1.98 L Hgb 5.2 L* Hct 16.3 L* MCV 82.2 MCH 26.1 L MCHC 31.7 L RDW 18.0 H Plt Count 434 MPV 7.9 Prelim Diff (Auto) Slide review pending Neut % (Auto) 79.6 H Lymph % (Auto) 13.0 [place] % (Auto) 6.0 Eos % (Auto) 0.9 Baso % (Auto) 0.5 Neut # (Auto) 12.9 H Lymph # (Auto) 2.1 [place] # (Auto) 1.0 H Eos # (Auto) 0.1 Baso # (Auto) 0.1 WBC Differential . Diff Scan Auto diff confirmed Differential Comment . Platelet Estimate Normal Platelet Morphology Normal Ovalocytes 1+ H PT 12.1 H INR 1.2 APTT 23.3 L Sodium 131 L Potassium 4.5 Chloride 93 L Carbon Dioxide 24.1 Anion Gap 14 BUN 41 H Creatinine 1.32 H Estimated GFR 53 L Random Glucose 172 H Calcium 9.1 Total Bilirubin 0.4 AST 22 ALT 18 Alkaline Phosphatase 74 Total Protein 6.5 Albumin 2.3 L Urine Color Urine Clarity Urine pH Ur Specific [place] Urine Protein Urine Glucose (UA) Urine Ketones Urine Occult Blood Urine Nitrate Urine Bilirubin Urine Urobilinogen Ur Leukocyte Esterase Urine RBC Urine WBC Ur Squamous Epith Cells Urine Mucus Blood Type Antibody Screen MTS Gel Crossmatch Bld Prod Order Comment 09/05/17 09/06/17 18:10 01:56 WBC RBC Hgb Hct MCV MCH MCHC RDW Plt Count MPV Prelim Diff (Auto) Neut % (Auto) Lymph % (Auto) [place] % (Auto) Eos % (Auto) Baso % (Auto) Neut # (Auto) Lymph # (Auto) [place] # (Auto) Eos # (Auto) Baso # (Auto) WBC Differential Diff Scan Differential Comment Platelet Estimate Platelet Morphology Ovalocytes PT INR APTT Sodium Potassium Chloride Carbon Dioxide Anion Gap BUN Creatinine Estimated GFR Random Glucose Calcium Total Bilirubin AST ALT Alkaline Phosphatase Total Protein Albumin Urine Color Yellow Urine Clarity Hazy H Urine pH 5.0 Ur Specific [place] 1.013 Urine Protein Negative Urine Glucose (UA) 50 Urine Ketones Negative Urine Occult Blood Negative Urine Nitrate Negative Urine Bilirubin Negative Urine Urobilinogen 2.0 H Ur Leukocyte Esterase Negative Urine RBC Less than 1 Urine WBC 1 Ur Squamous Epith Cells <1 Urine Mucus Few H Blood Type A Positive Antibody Screen Negative MTS Gel Crossmatch See Detail Bld Prod Order Comment - Imaging Impressions Chest X-Ray 09/05/17 19:23 CONCLUSION: Trace bibasilar atelectasis and tiny effusion versus scarring left base. Caprini VTE Risk Assessment Caprini VTE Risk Assessment: Moderate/High Risk (score >= 2) Caprini Risk Assessment Model: Point Value = 1 Point Value = 2 Point Value = 3 Point Value = 5 Age 41-60 Minor surgery BMI > 25 kg/m2 Swollen legs Varicose veins or History of unexplained or recurrent spontaneous Oral contraceptives or hormone replacement Sepsis (< 1 month) Serious lung disease, including pneumonia (< 1 month) Abnormal pulmonary function Acute myocardial infarction Congestive heart failure (< 1 month) History of inflammatory bowel disease Medical patient at bed rest Age 61-74 Arthroscopic surgery Major open surgery (> 45 min) Laparoscopic surgery (> 45 min) Malignancy Confined to bed (> 72 hours) Immobilizing plaster cast Central venous access Age >= 75 History of VTE Family history of VTE Factor V Leiden Prothrombin [id number] Lupus anticoagulant Anticardiolipin antibodies Elevated serum homocysteine Heparin-induced thrombocytopenia Other congenital or acquired thrombophilia Stroke (< 1 month) Elective arthroplasty Hip, pelvis, or leg fracture Acute spinal cord injury (< 1 month) Prophylaxis Regimen: Total Risk Factor Score Risk Level Prophylaxis Regimen 0-1 Low Early ambulation 2 Moderate Order ONE of the following: *Sequential Compression Device (SCD) *Heparin 5000 units SQ BID 3-4 Higher Order ONE of the following medications: *Heparin 5000 units SQ TID *Enoxaparin/Lovenox 40 mg SQ daily (WT < 150 kg, CrCl > 30 mL/min) *Enoxaparin/Lovenox 30 mg SQ daily (WT < 150 kg, CrCl > 10-29 mL/min) *Enoxaparin/Lovenox 30 mg SQ BID (WT < 150 kg, CrCl > 30 mL/min) AND/OR *Sequential Compression Device (SCD) 5 or more Highest Order ONE of the following medications: *Heparin 5000 units SQ TID (Preferred with Epidurals) *Enoxaparin/Lovenox 40 mg SQ daily (WT < 150 kg, CrCl > 30 mL/min) *Enoxaparin/Lovenox 30 mg SQ daily (WT < 150 kg, CrCl > 10-29 mL/min) *Enoxaparin/Lovenox 30 mg SQ BID (WT < 150 kg, CrCl > 30 mL/min) AND *Sequential Compression Device (SCD) Assessment and Plan - Plan Assessment/plan: 1. Anemia/GI bleed H&H 5.2/16.3 Transfuse 3 units packed red blood cells Hemoccult positive Gastroenterology consulted, appreciate assistance Protonix drip 2. Recent BKA Morphine for pain 3. Hypertension/hyperlipidemia Continue home statin, hydralazine, lisinopril 4. COPD Duo nebs as needed 5. Diabetes Holding home Levemir Sliding-scale insulin Monitor blood glucose 6. Chronic kidney disease Creatinine 1.32, baseline for the patient Monitor renal function 7. BPH Continue tamsulosin FEN N.p.o. Electrolytes: Monitor and replete as needed Holding pharmacologic anticoagulation secondary to anemia/GI bleed
[2017-09-06 07:13] LABS: Calcium 8.5 mg/dL (8.5-10.1); Carbon Dioxide 24.1 meq/L (21.0-32.0); Potassium 4.2 meq/L (3.5-5.1)
[2017-09-06 07:19] LABS: Baso # (Auto) 0.1 th/mm3 (0.0-0.2); Baso % (Auto) 0.6 % (0.0-2.0); Eos # (Auto) 0.1 th/mm3 (0.0-0.4); Eos % (Auto) 0.7 % (0.0-4.0); Hematocrit 33.8 % (39.0-51.0); Hemoglobin 10.9 gm/dL (13.0-17.0); Lymph # (Auto) 1.7 th/mm3 (1.0-4.8); Lymph % (Auto) 14.7 % (9.0-44.0); Mean Corpuscular HGB Conc 32.1 % (32.0-36.0); Mean Corpuscular Hemoglobin 26.7 pg (27.0-34.0); Mean Corpuscular Volume 83.1 fL (80.0-100.0); Mean Platelet Volume 7.3 fL (7.0-11.0); Mono # (Auto) 0.8 th/mm3 (0.0-0.9); Mono % (Auto) 7.2 % (0.0-8.0); Neut # (Auto) 8.6 th/mm3 (1.8-7.7); Neut % (Auto) 76.8 % (16.0-70.0); Platelet Count 296 th/mm3 (150-450); Red Blood Count 4.07 mil/mm3 (4.50-5.90); Red Cell Distribution Width 17.8 % (11.6-17.2); White Blood Count 11.2 th/mm3 (4.0-11.0)
[2017-09-06] MEDS: Sod Chloride 0.9% Inj 1,000 ML IV.CONT SCH (08:05)
[2017-09-06] MEDS: Lisinopril 5 MG Tablet PO SCH (09:06)
[2017-09-06] MEDS: hydrALAZINE 25 MG Tablet PO SCH ×2 (09:06→20:51)
--- NOTE | 2017-09-06 10:10 | P.CONGI ---
History of Present Illness Consult date: 09/06/17 Consult reason: Possible GI bleed, anemia Chief complaint: GI Bleed, Anemia History of Present Illness: This is a frail 77-year-old male who brought back into the hospital for evaluation on 09/06/2017 patient was in the hospital from - and discharged on 72. Patient had anemia workup with EGD during that hospital stay which showed some gastritis and duodenitis. 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 Patient has significant dementia and is not responding to any verbal stimuli. Currently has just received some pain management and he does open his eyes. Patient takes no blood thinners seen in the record. Hemoglobin on admission was 5.2 and patient was transfused with 3 units currently now 10.9. WBC count 16.2 on admission now decreased to 11.2, PT/INR 1.2, LFTs normal. Patient was discharged to a SNF and he is currently a DO NOT RESUSCITATE CODE STATUS. It is also noted in the record patient is significant for multi-comorbidities which includes hypertension and diabetes and his vascular disease. There is currently no family present. Positive Hemoccult noted on admission. 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 upon examination Anemia COPD (chronic obstructive pulmonary disease) Cerebral infarction Depressed GERD (gastroesophageal reflux disease) HBP (high blood pressure) Neoplasm of prostate Pacemaker - Surgical History Surgical History: Surgical History (Last Updated 09/05/17 @ 18:11 by Kinsey Serrano) Amputation of right lower extremity below knee - Tobacco History Tobacco Use In Past 30 Days: No Smoking Status: Former smoker Tobacco Type: Cigarettes - Alcohol History How Often Do You Have a Drink Containing Alcohol: Never - Substance Use History Substance History: No History of Abuse - Travel History Recent Travel in the [facility] Within the Last 8 Weeks: No Recent Travel Out of the Country Within the Last 8 Weeks: No - Immunization History Tetanus Immunization: <5 Years Hx Influenza Vaccine This Season: Yes <Gavi Angulo - Last Filed: 09/06/17 09:58> - Medical History Medical History: Medical History (Last Updated 09/06/17 @ 03:10 by Delmy Hare MD) 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 upon examination Anemia COPD (chronic obstructive pulmonary disease) Cerebral infarction Depressed GERD (gastroesophageal reflux disease) HBP (high blood pressure) Neoplasm of prostate Pacemaker - Surgical History Surgical History: Surgical History (Last Updated 09/05/17 @ 18:11 by Kinsey Serrano) Amputation of right lower extremity below knee <Amari Bowens - Last Filed: 09/06/17 14:37> Medications and Allergies Active Medications: Active Medications Albuterol (Duoneb Neb (Prn)) 1 ampul NEB Q2HR NEB PRN PRN Reason: shortenss of breath/wheezing Atorvastatin Calcium (Lipitor) 40 mg PO HS IVANA Dextrose (D50w Vial) 50 ml IV.PUSH UNSCH PRN PRN Reason: PER HYPOGLYCEMIA PROTOCOL Glucagon (Glucagon Inj) 1 mg OTHER PRN PRN PRN Reason: for Hypoglycemia Protocol Hydralazine HCl (Apresoline) 25 mg PO BID [facility] Last Admin: 09/06/17 09:06 Dose: Not Given Pantoprazole Sodium 80 mg/ (Sodium Chloride) 100 mls @ 10 mls/hr IV.CONT CONT IVANA Sodium Chloride (Ns Inj) 1,000 mls @ 30 mls/hr IV.CONT .Q24H IVANA Last Admin: 09/06/17 08:05 Dose: 30 mls/hr Sodium Chloride (Ns Inj) 250 mls @ 15 mls/hr IV.SIG ONCE IVANA Stop: 09/06/17 13:39 Last Admin: 09/06/17 07:01 Dose: Not Given Insulin Human Regular (Novolin R Supplemental Scale) 0 units SQ ACHS AND 3AM IVANA; Protocol Lisinopril (Prinivil) 5 mg PO DAILY [facility] Last Admin: 09/06/17 09:06 Dose: Not Given Morphine Sulfate (Morphine Inj) 4 mg IV.PUSH Q4H PRN PRN Reason: PAIN 6-10 Last Admin: 09/06/17 07:56 Dose: 4 mg Ondansetron HCl (Zofran Odt) 4 mg PO Q6HR PRN PRN Reason: NAUSEA OR VOMITING Oxycodone/Acetaminophen (Percocet 5/325 Mg) 1 tab PO Q6HR PRN PRN Reason: Acute Pain Sodium Chloride (Ns Flush) 2 ml IV.FLUSH BID [facility] Last Admin: 09/06/17 09:06 Dose: Not Given Sodium Chloride (Ns Flush) 2 ml IV.FLUSH PRN PRN PRN Reason: FLUSH AFTER USING IV ACCESS Sucralfate (Carafate Liq) 0 gm PO ACHS IVANA Tamsulosin HCl (Flomax) 0.4 mg PO HS [facility] Last Admin: 09/06/17 06:54 Dose: Not Given <Gavi Angulo - Last Filed: 09/06/17 09:58> Active Medications: Active Medications Albuterol (Duoneb Neb (Prn)) 1 ampul NEB Q2HR NEB PRN PRN Reason: shortenss of breath/wheezing Atorvastatin Calcium (Lipitor) 40 mg PO HS [facility] Dextrose (D50w Vial) 50 ml IV.PUSH UNSCH PRN PRN Reason: PER HYPOGLYCEMIA PROTOCOL Glucagon (Glucagon Inj) 1 mg OTHER PRN PRN PRN Reason: for Hypoglycemia Protocol Hydralazine HCl (Apresoline) 25 mg PO BID [facility] Last Admin: 09/06/17 09:06 Dose: Not Given Pantoprazole Sodium 80 mg/ (Sodium Chloride) 100 mls @ 10 mls/hr IV.CONT CONT IVANA Sodium Chloride (Ns Inj) 1,000 mls @ 30 mls/hr IV.CONT .Q24H [facility] Last Admin: 09/06/17 08:05 Dose: 30 mls/hr Insulin Human Regular (Novolin R Supplemental Scale) 0 units SQ ACHS AND 3AM [facility]; Protocol Last Admin: 09/06/17 13:35 Dose: Not Given Lisinopril (Prinivil) 5 mg PO DAILY [facility] Last Admin: 09/06/17 09:06 Dose: Not Given Morphine Sulfate (Morphine Inj) 4 mg IV.PUSH Q4H PRN PRN Reason: PAIN 6-10 Last Admin: 09/06/17 07:56 Dose: 4 mg Ondansetron HCl (Zofran Odt) 4 mg PO Q6HR PRN PRN Reason: NAUSEA OR VOMITING Oxycodone/Acetaminophen (Percocet 5/325 Mg) 1 tab PO Q6HR PRN PRN Reason: Acute Pain Sodium Chloride (Ns Flush) 2 ml IV.FLUSH BID [facility] Last Admin: 09/06/17 09:06 Dose: Not Given Sodium Chloride (Ns Flush) 2 ml IV.FLUSH PRN PRN PRN Reason: FLUSH AFTER USING IV ACCESS Sucralfate (Carafate Liq) 0 gm PO ACHS [facility] Last Admin: 09/06/17 13:31 Dose: 1 gm Tamsulosin HCl (Flomax) 0.4 mg PO HS [facility] Last Admin: 09/06/17 06:54 Dose: Not Given <Amari Bowens A - Last Filed: 09/06/17 14:37> Allergies Allergy/AdvReac Type Severity Reaction Status Date / Time iodine Allergy Severe HIVES Verified 09/05/17 18:12 potassium iodide Allergy Severe HIVES Verified 09/05/17 18:12 povidone-iodine Allergy Severe HIVES Verified 09/05/17 18:12 shellfish derived Allergy Severe Rash Verified 09/05/17 18:12 sodium iodide Allergy Severe HIVES Verified 09/05/17 18:12 sodium iodide Allergy Severe HIVES Verified 09/05/17 18:12 Home Medications Medication Instructions Recorded Confirmed Type ascorbic acid (vitamin C) 500 mg PO DAILY 08/26/17 09/05/17 History hydralazine 25 mg PO BID 08/26/17 09/05/17 History multivitamin with minerals 1 tab PO DAILY 08/26/17 09/05/17 History [Multiple Vitamin-Minerals] ondansetron 4 mg PO Q6HR PRN 08/26/17 09/05/17 History aspirin 81 mg PO DAILY 09/05/17 09/05/17 History Exam Vital signs: Vital Signs 09/05/17 17:49 09/05/17 21:15 09/05/17 21:45 Temperature 97.8 F 97.3 F L Pulse Rate 94 H 94 H Respiratory Rate 18 14 Blood Pressure 103/55 L 101/51 L Pulse Oximetry 97 100 09/05/17 22:09 09/05/17 23:59 09/06/17 00:02 Temperature 98.4 F 98.4 F Pulse Rate 88 86 87 Respiratory Rate 16 16 Blood Pressure 113/55 L 124/59 L 118/54 L Pulse Oximetry 99 100 09/06/17 00:17 09/06/17 03:19 09/06/17 08:06 Temperature 98.4 F Pulse Rate 86 81 79 Respiratory Rate 16 14 19 Blood Pressure 120/59 L 131/92 H 134/85 Pulse Oximetry 95 09/06/17 08:57 Temperature Pulse Rate 73 Respiratory Rate 22 Blood Pressure 134/85 Pulse Oximetry 96 Intake & Output 09/05/17 09/06/17 09/06/17 18:59 06:59 18:59 Intake Total 0 / 0 1000 / 1000 Output Total 1000 / 1000 Balance 0 / 0 0 / 0 Weight 49.895 kg Intake: IV 1000 / 1000 NS Inj 1,000 ML @ 30 mls/hr IV. 1000 / 1000 CONT .Q24H [facility] Rx#:[id number] Intake (Blood Product) Amt 0 / 0 Rbc As-3 Leukoreduced Unit 0 / 0 [id number] Rbc As-3 Leukoreduced Unit 0 / 0 [id number] Rbc As-3 Leukoreduced Unit 0 / 0 [id number] Output: Urine 1000 / 1000 - Constitutional no acute distress (But just received pain meds), chronically ill appearing ( Frail plan) - Routine HEENT Exam Head: Present: atraumatic ENT: Present: mucous membranes dry - Routine Neck Exam Present: supple - Routine Cardiovascular Exam Present: murmur (Systolic) - Routine Abdominal Exam Present: soft (Flat, soft bowel sounds,) - Routine Skin Exam Present: dry, pallor - Routine Neurological Exam Present: altered mental status <Gavi Angulo - Last Filed: 09/06/17 09:58> Vital signs: Vital Signs 09/05/17 17:49 09/05/17 21:15 09/05/17 21:45 Temperature 97.8 F 97.3 F L Pulse Rate 94 H 94 H Respiratory Rate 18 14 Blood Pressure 103/55 L 101/51 L Pulse Oximetry 97 100 09/05/17 22:09 09/05/17 23:59 09/06/17 00:02 Temperature 98.4 F 98.4 F Pulse Rate 88 86 87 Respiratory Rate 16 16 Blood Pressure 113/55 L 124/59 L 118/54 L Pulse Oximetry 99 100 09/06/17 00:17 09/06/17 03:19 09/06/17 08:06 Temperature 98.4 F Pulse Rate 86 81 79 Respiratory Rate 16 14 19 Blood Pressure 120/59 L 131/92 H 134/85 Pulse Oximetry 95 09/06/17 08:57 09/06/17 10:30 09/06/17 10:33 Temperature 98.4 F 98.4 F Pulse Rate 73 71 Respiratory Rate 22 22 Blood Pressure 134/85 149/71 H Pulse Oximetry 96 97 09/06/17 13:36 09/06/17 13:40 Temperature Pulse Rate 77 Respiratory Rate 22 Blood Pressure 168/70 H Pulse Oximetry 95 95 Intake & Output 09/05/17 09/06/17 09/06/17 18:59 06:59 18:59 Intake Total 0 / 0 1000 / 1000 Output Total 1700 / 1700 Balance 0 / 0 -700 / -700 Weight 49.895 kg Intake: IV 1000 / 1000 NS Inj 1,000 ML @ 30 mls/hr IV. 1000 / 1000 CONT .Q24H [facility] Rx#:[id number] Intake (Blood Product) Amt 0 / 0 Rbc As-3 Leukoreduced Unit 0 / 0 [id number] Rbc As-3 Leukoreduced Unit 0 / 0 [id number] Rbc As-3 Leukoreduced Unit 0 / 0 [id number] Output: Urine 1700 / 1700 <Amari Bowens A - Last Filed: 09/06/17 14:37> Results - Labs CBC & Chem 7: 09/06/17 06:01 09/06/17 06:01 Labs: Laboratory Results - last 24 hr 09/05/17 09/05/17 09/05/17 18:10 18:10 18:10 WBC 16.2 H RBC 1.98 L Hgb 5.2 L* Hct 16.3 L* MCV 82.2 MCH 26.1 L MCHC 31.7 L RDW 18.0 H Plt Count 434 MPV 7.9 Prelim Diff (Auto) Slide review pending Neut % (Auto) 79.6 H Lymph % (Auto) 13.0 [place] % (Auto) 6.0 Eos % (Auto) 0.9 Baso % (Auto) 0.5 Neut # (Auto) 12.9 H Lymph # (Auto) 2.1 [place] # (Auto) 1.0 H Eos # (Auto) 0.1 Baso # (Auto) 0.1 WBC Differential . Diff Scan Auto diff confirmed Differential Comment . Platelet Estimate Normal Platelet Morphology Normal Ovalocytes 1+ H Hematology Comments PT 12.1 H INR 1.2 APTT 23.3 L Sodium 131 L Potassium 4.5 Chloride 93 L Carbon Dioxide 24.1 Anion Gap 14 BUN 41 H Creatinine 1.32 H Estimated GFR 53 L Random Glucose 172 H Calcium 9.1 Total Bilirubin 0.4 AST 22 ALT 18 Alkaline Phosphatase 74 Total Protein 6.5 Albumin 2.3 L Urine Color Urine Clarity Urine pH Ur Specific [place] Urine Protein Urine Glucose (UA) Urine Ketones Urine Occult Blood Urine Nitrate Urine Bilirubin Urine Urobilinogen Ur Leukocyte Esterase Urine RBC Urine WBC Ur Squamous Epith Cells Urine Mucus Blood Type Antibody Screen MTS Gel Crossmatch Bld Prod Order Comment 09/05/17 09/06/17 09/06/17 18:10 01:56 06:01 WBC RBC Hgb Hct MCV MCH MCHC RDW Plt Count MPV Prelim Diff (Auto) Neut % (Auto) Lymph % (Auto) [place] % (Auto) Eos % (Auto) Baso % (Auto) Neut # (Auto) Lymph # (Auto) [place] # (Auto) Eos # (Auto) Baso # (Auto) WBC Differential Diff Scan Differential Comment Platelet Estimate Platelet Morphology Ovalocytes Hematology Comments PT INR APTT Sodium 134 L Potassium 4.2 Chloride 99 Carbon Dioxide 24.1 Anion Gap 11 BUN 39 H Creatinine 1.15 Estimated GFR 62 L Random Glucose 161 H Calcium 8.5 Total Bilirubin AST ALT Alkaline Phosphatase Total Protein Albumin Urine Color Yellow Urine Clarity Hazy H Urine pH 5.0 Ur Specific [place] 1.013 Urine Protein Negative Urine Glucose (UA) 50 Urine Ketones Negative Urine Occult Blood Negative Urine Nitrate Negative Urine Bilirubin Negative Urine Urobilinogen 2.0 H Ur Leukocyte Esterase Negative Urine RBC Less than 1 Urine WBC 1 Ur Squamous Epith Cells <1 Urine Mucus Few H Blood Type A Positive Antibody Screen Negative MTS Gel Crossmatch See Detail Bld Prod Order Comment 09/06/17 06:01 WBC 11.2 H RBC 4.07 L Hgb 10.9 L D Hct 33.8 L MCV 83.1 MCH 26.7 L MCHC 32.1 RDW 17.8 H Plt Count 296 D MPV 7.3 Prelim Diff (Auto) Neut % (Auto) 76.8 H Lymph % (Auto) 14.7 [place] % (Auto) 7.2 Eos % (Auto) 0.7 Baso % (Auto) 0.6 Neut # (Auto) 8.6 H Lymph # (Auto) 1.7 [place] # (Auto) 0.8 Eos # (Auto) 0.1 Baso # (Auto) 0.1 WBC Differential . Diff Scan Differential Comment Auto diff final Platelet Estimate Platelet Morphology Ovalocytes Hematology Comments PT INR APTT Sodium Potassium Chloride Carbon Dioxide Anion Gap BUN Creatinine Estimated GFR Random Glucose Calcium Total Bilirubin AST ALT Alkaline Phosphatase Total Protein Albumin Urine Color Urine Clarity Urine pH Ur Specific [place] Urine Protein Urine Glucose (UA) Urine Ketones Urine Occult Blood Urine Nitrate Urine Bilirubin Urine Urobilinogen Ur Leukocyte Esterase Urine RBC Urine WBC Ur Squamous Epith Cells Urine Mucus Blood Type Antibody Screen MTS Gel Crossmatch Bld Prod Order Comment - Imaging Impressions Chest X-Ray 09/05/17 19:23 CONCLUSION: Trace bibasilar atelectasis and tiny effusion versus scarring left base. <Gavi Angulo - Last Filed: 09/06/17 09:58> - Labs CBC & Chem 7: 09/06/17 06:01 09/06/17 06:01 Labs: Laboratory Results - last 24 hr 09/05/17 09/05/17 09/05/17 18:10 18:10 18:10 WBC 16.2 H RBC 1.98 L Hgb 5.2 L* Hct 16.3 L* MCV 82.2 MCH 26.1 L MCHC 31.7 L RDW 18.0 H Plt Count 434 MPV 7.9 Prelim Diff (Auto) Slide review pending Neut % (Auto) 79.6 H Lymph % (Auto) 13.0 [place] % (Auto) 6.0 Eos % (Auto) 0.9 Baso % (Auto) 0.5 Neut # (Auto) 12.9 H Lymph # (Auto) 2.1 [place] # (Auto) 1.0 H Eos # (Auto) 0.1 Baso # (Auto) 0.1 WBC Differential . Diff Scan Auto diff confirmed Differential Comment . Platelet Estimate Normal Platelet Morphology Normal Ovalocytes 1+ H Hematology Comments PT 12.1 H INR 1.2 APTT 23.3 L Sodium 131 L Potassium 4.5 Chloride 93 L Carbon Dioxide 24.1 Anion Gap 14 BUN 41 H Creatinine 1.32 H Estimated GFR 53 L POC Glucose Random Glucose 172 H Calcium 9.1 Total Bilirubin 0.4 AST 22 ALT 18 Alkaline Phosphatase 74 Total Protein 6.5 Albumin 2.3 L Urine Color Urine Clarity Urine pH Ur Specific [place] Urine Protein Urine Glucose (UA) Urine Ketones Urine Occult Blood Urine Nitrate Urine Bilirubin Urine Urobilinogen Ur Leukocyte Esterase Urine RBC Urine WBC Ur Squamous Epith Cells Urine Mucus Blood Type Antibody Screen MTS Gel Crossmatch Bld Prod Order Comment 09/05/17 09/06/17 09/06/17 18:10 01:56 06:01 WBC RBC Hgb Hct MCV MCH MCHC RDW Plt Count MPV Prelim Diff (Auto) Neut % (Auto) Lymph % (Auto) [place] % (Auto) Eos % (Auto) Baso % (Auto) Neut # (Auto) Lymph # (Auto) [place] # (Auto) Eos # (Auto) Baso # (Auto) WBC Differential Diff Scan Differential Comment Platelet Estimate Platelet Morphology Ovalocytes Hematology Comments PT INR APTT Sodium 134 L Potassium 4.2 Chloride 99 Carbon Dioxide 24.1 Anion Gap 11 BUN 39 H Creatinine 1.15 Estimated GFR 62 L POC Glucose Random Glucose 161 H Calcium 8.5 Total Bilirubin AST ALT Alkaline Phosphatase Total Protein Albumin Urine Color Yellow Urine Clarity Hazy H Urine pH 5.0 Ur Specific [place] 1.013 Urine Protein Negative Urine Glucose (UA) 50 Urine Ketones Negative Urine Occult Blood Negative Urine Nitrate Negative Urine Bilirubin Negative Urine Urobilinogen 2.0 H Ur Leukocyte Esterase Negative Urine RBC Less than 1 Urine WBC 1 Ur Squamous Epith Cells <1 Urine Mucus Few H Blood Type A Positive Antibody Screen Negative MTS Gel Crossmatch See Detail Bld Prod Order Comment 09/06/17 09/06/17 09/06/17 06:01 10:19 13:35 WBC 11.2 H RBC 4.07 L Hgb 10.9 L D Hct 33.8 L MCV 83.1 MCH 26.7 L MCHC 32.1 RDW 17.8 H Plt Count 296 D MPV 7.3 Prelim Diff (Auto) Neut % (Auto) 76.8 H Lymph % (Auto) 14.7 [place] % (Auto) 7.2 Eos % (Auto) 0.7 Baso % (Auto) 0.6 Neut # (Auto) 8.6 H Lymph # (Auto) 1.7 [place] # (Auto) 0.8 Eos # (Auto) 0.1 Baso # (Auto) 0.1 WBC Differential . Diff Scan Differential Comment Auto diff final Platelet Estimate Platelet Morphology Ovalocytes Hematology Comments PT INR APTT Sodium Potassium Chloride Carbon Dioxide Anion Gap BUN Creatinine Estimated GFR POC Glucose 142 H 118 H Random Glucose Calcium Total Bilirubin AST ALT Alkaline Phosphatase Total Protein Albumin Urine Color Urine Clarity Urine pH Ur Specific [place] Urine Protein Urine Glucose (UA) Urine Ketones Urine Occult Blood Urine Nitrate Urine Bilirubin Urine Urobilinogen Ur Leukocyte Esterase Urine RBC Urine WBC Ur Squamous Epith Cells Urine Mucus Blood Type Antibody Screen MTS Gel Crossmatch Bld Prod Order Comment - Imaging Impressions Chest X-Ray 09/05/17 19:23 CONCLUSION: Trace bibasilar atelectasis and tiny effusion versus scarring left base. <Amari Bowens - Last Filed: 09/06/17 14:37> Assessment and Plan (1) Anemia Status: Acute Code(s): D64.9 - Anemia, unspecified (2) History of gastritis Status: Acute Code(s): Z87.19 - Personal history of other diseases of the digestive system (3) Duodenitis Status: Acute Code(s): K29.80 - Duodenitis without bleeding (4) Acute GI bleeding Status: Acute Code(s): K92.2 - Gastrointestinal hemorrhage, unspecified - Plan History of gastritis on EGD and duodenitis. Done within the past month with patient's last hospital stay and anemia diagnosis. On admission to the hospital patient was not on any PPI or Carafate. No blood thinners. Anemia, positive hemoglobin. GI bleeding patient hemoglobin was 5.2 and after 3 units transfusion was 10.9. Other labs show INR 1.2. LFTs normal patient did have a recent right AKA. It shows no obvious edema but is very painful to touch the dressing is clean dry and intact. Abdominal exam shows positive bowel sounds flat nondistended nontender. Unknown for any melena stools and no bright red rectal bleeding noted. Will observe patient for the next 24 hours and consider conservative management. Will re-eval at that time if patient continues to drop hemoglobin show any obvious signs of bleeding. Plan As tolerated per attending Protonix drip Carafate No blood thinners except for baby aspirin Monitor labs with special attention to hemoglobin Further recommendations to follow, conservative management Patient was seen per myself and Dr. Bowens, this note was written on his behalf <Gavi Angulo - Last Filed: 09/06/17 09:58> (1) Anemia Status: Acute Code(s): D64.9 - Anemia, unspecified (2) History of gastritis Status: Acute Code(s): Z87.19 - Personal history of other diseases of the digestive system (3) Duodenitis Status: Acute Code(s): K29.80 - Duodenitis without bleeding (4) Acute GI bleeding Status: Acute Code(s): K92.2 - Gastrointestinal hemorrhage, unspecified - Attending Attestation Seen and examined, plan as above. Will follow up with you. Thank you for the consult. <Amari Bowens - Last Filed: 09/06/17 14:37>
[2017-09-06] MEDS: Insulin NovoLIN Regular Correctional Sugar Inj SQ SCH ×4 (10:31→21:21)
[2017-09-06] MEDS: Sucralfate Liq 1 GM/10 ML UDC PO SCH ×3 (13:31→20:51)
[2017-09-07] MEDS: Morphine Inj 4 MG/ML Vial IV.PUSH PRN ×2 (01:36→18:04)
[2017-09-07] MEDS: Insulin NovoLIN Regular Correctional Sugar Inj SQ SCH ×5 (03:12→22:25)
[2017-09-07] MEDS: Pantoprazole Inj 80 MG in Sodium Chlor 0.9% Inj 100 ML IV.CONT SCH (04:47)
[2017-09-07] MEDS: hydrALAZINE 25 MG Tablet PO SCH ×2 (10:36→22:25)
[2017-09-07] MEDS: Sod Chloride 0.9% Inj 1,000 ML IV.CONT SCH (10:36)
[2017-09-07] MEDS: Lisinopril 5 MG Tablet PO SCH (10:36)
[2017-09-07] MEDS: Sucralfate Liq 1 GM/10 ML UDC PO SCH ×4 (10:37→22:26)
[2017-09-07 12:57] LABS: Baso % (Auto) 0.2 % (0.0-2.0); Eos # (Auto) 0.2 th/mm3 (0.0-0.4); Eos % (Auto) 1.1 % (0.0-4.0); Hematocrit 27.2 % (39.0-51.0); Hemoglobin 9.6 gm/dL (13.0-17.0); Lymph # (Auto) 0.9 th/mm3 (1.0-4.8); Lymph % (Auto) 5.8 % (9.0-44.0); Mean Corpuscular HGB Conc 35.2 % (32.0-36.0); Mean Corpuscular Hemoglobin 28.6 pg (27.0-34.0); Mean Corpuscular Volume 81.3 fL (80.0-100.0); Mean Platelet Volume 6.9 fL (7.0-11.0); Mono # (Auto) 0.8 th/mm3 (0.0-0.9); Neut # (Auto) 14.1 th/mm3 (1.8-7.7); Neut % (Auto) 87.9 % (16.0-70.0); Platelet Count 324 th/mm3 (150-450); Red Blood Count 3.35 mil/mm3 (4.50-5.90)
[2017-09-07 13:18] LABS: Alanine Aminotransferase 22 U/L (12-78); Albumin 2.2 g/dL (3.4-5.0); Anion Gap 10 meq/L (5-15); Aspartate Aminotransferase 23 U/L (15-37); Blood Urea Nitrogen 24 mg/dL (7-18); Calcium 8.8 mg/dL (8.5-10.1); Carbon Dioxide 22.7 meq/L (21.0-32.0); Chloride 103 meq/L (98-107); Glomerular Filtration Rate 77 mL/min (>89); Glucose,Random 193 mg/dL (74-106); Magnesium 1.9 mg/dL (1.5-2.5); Phosphorus 2.3 mg/dL (2.5-4.9); Potassium 3.8 meq/L (3.5-5.1); Sodium 136 meq/L (136-145)
[2017-09-07 13:26] LABS: Alkaline Phosphatase 73 U/L (45-117); Free T4 (Free Thyroxine) 1.82 ng/dL (0.76-1.46); Total Protein 6.3 g/dL (6.4-8.2)
--- NOTE | 2017-09-07 13:30 | P.PNGI ---
Subjective Interval history: Pt alert and oriented to person and place. Per RN was only oriented to person this morning. She reports pt has had no BM for her and she had no reports of BMs by crew lead nurse. Pt denies nausea, vomiting. <Shana North - Last Filed: 09/07/17 13:39> Physical Exam Vital signs: Vital Signs 09/06/17 13:36 09/06/17 13:40 09/06/17 18:11 Temperature 98.5 F Pulse Rate 77 79 Respiratory Rate 22 22 Blood Pressure 168/70 H 139/65 Pulse Oximetry 95 95 96 09/06/17 20:29 09/07/17 00:06 09/07/17 01:35 Temperature Pulse Rate 70 82 Respiratory Rate 16 14 22 Blood Pressure 166/68 H 130/59 L Pulse Oximetry 96 97 09/07/17 02:25 09/07/17 02:30 09/07/17 02:39 Temperature 98.7 F Pulse Rate 81 93 H Respiratory Rate 20 16 Blood Pressure 166/77 H Pulse Oximetry 95 09/07/17 04:00 09/07/17 07:00 09/07/17 07:59 Temperature 98.6 F 97.9 F Pulse Rate 78 81 Respiratory Rate 20 18 Blood Pressure 148/68 H 161/82 H Pulse Oximetry 98 95 91 L Intake & Output 09/06/17 09/07/17 09/07/17 18:59 06:59 18:59 Intake Total 1100 / 1100 400 / 400 1000 / 1000 Output Total 1700 / 1700 800 / 800 Balance -600 / -600 -400 / -400 1000 / 1000 Intake: IV 1100 / 1100 100 / 100 1000 / 1000 Protonix Inj 80 MG In NS Inj 100 / 100 100 / 100 100 ML @ 10 mls/hr IV.CONT CONT [facility] Rx#:[id number] NS Inj 1,000 ML @ 30 mls/hr IV. 1000 / 1000 1000 / 1000 CONT .Q24H [facility] Rx#:[id number] Oral 300 / 300 Output: Urine 1700 / 1700 Urine Amount (Catheter) 800 / 800 Condom 800 / 800 Other: # Voids 2 - Constitutional no acute distress - Routine HEENT Exam Head: Present: normocephalic, atraumatic - Routine Respiratory Exam Absent: accessory muscle use - Routine Abdominal Exam Present: soft, normoactive bowel sounds. Absent: tenderness, distended, rebound , guarding, firm - Routine Skin Exam Present: dry, warm - Routine Neurological Exam Present: alert oriented to person and place - Urinary Catheter Management Condom Cath placed during this visit: no <Shana North - Last Filed: 09/07/17 13:39> Vital signs: Vital Signs 09/06/17 20:29 09/07/17 00:06 09/07/17 01:35 Temperature Pulse Rate 70 82 Respiratory Rate 16 14 22 Blood Pressure 166/68 H 130/59 L Pulse Oximetry 96 97 09/07/17 02:25 09/07/17 02:30 09/07/17 02:39 Temperature 98.7 F Pulse Rate 81 93 H Respiratory Rate 20 16 Blood Pressure 166/77 H Pulse Oximetry 95 09/07/17 04:00 09/07/17 07:00 09/07/17 07:59 Temperature 98.6 F 97.9 F Pulse Rate 78 66 81 Respiratory Rate 20 18 Blood Pressure 148/68 H 161/82 H Pulse Oximetry 98 95 91 L 09/07/17 08:00 09/07/17 09:00 09/07/17 10:00 Temperature 97.9 F Pulse Rate 81 80 78 Respiratory Rate 18 Blood Pressure 161/82 H Pulse Oximetry 92 L 09/07/17 11:00 09/07/17 12:00 09/07/17 13:00 Temperature 98.0 F Pulse Rate 86 76 80 Respiratory Rate 18 Blood Pressure 145/67 H Pulse Oximetry 97 09/07/17 14:00 09/07/17 15:00 09/07/17 16:00 Temperature 99.4 F Pulse Rate 82 92 H 84 Respiratory Rate 16 Blood Pressure 141/70 H Pulse Oximetry 92 L 09/07/17 17:00 09/07/17 19:07 Temperature Pulse Rate 84 78 Respiratory Rate Blood Pressure Pulse Oximetry Intake & Output 09/07/17 09/07/17 09/08/17 06:59 18:59 06:59 Intake Total 400 / 400 1240 / 1240 Output Total 800 / 800 701 / 701 Balance -400 / -400 539 / 539 Intake: IV 100 / 100 1000 / 1000 Protonix Inj 80 MG In NS Inj 100 / 100 100 ML @ 10 mls/hr IV.CONT CONT [facility] Rx#:[id number] NS Inj 1,000 ML @ 30 mls/hr IV. 1000 / 1000 CONT .Q24H [facility] Rx#:[id number] Oral 300 / 300 240 / 240 Output: Urine 700 / 700 Stool 1 / 1 Urine Amount (Catheter) 800 / 800 Condom 800 / 800 Other: # Voids 2 Date of Last Bowel Movement 09/07/17 - Urinary Catheter Management Condom Cath placed during this visit: no <KwanDianeelena Santos - Last Filed: 09/07/17 20:20> Results - Labs CBC & Chem 7: 09/07/17 12:43 09/07/17 12:43 Laboratory Results - last 24 hr 09/06/17 09/06/17 09/06/17 13:35 18:09 21:10 WBC RBC Hgb Hct MCV MCH MCHC RDW Plt Count MPV Neut % (Auto) Lymph % (Auto) [place] % (Auto) Eos % (Auto) Baso % (Auto) Neut # (Auto) Lymph # (Auto) [place] # (Auto) Eos # (Auto) Baso # (Auto) WBC Differential Differential Comment Sodium Potassium Chloride Carbon Dioxide Anion Gap BUN Creatinine Estimated GFR POC Glucose 118 H 164 H 165 H Random Glucose Calcium Phosphorus Magnesium AST ALT Albumin 09/07/17 09/07/17 09/07/17 03:12 08:11 12:22 WBC RBC Hgb Hct MCV MCH MCHC RDW Plt Count MPV Neut % (Auto) Lymph % (Auto) [place] % (Auto) Eos % (Auto) Baso % (Auto) Neut # (Auto) Lymph # (Auto) [place] # (Auto) Eos # (Auto) Baso # (Auto) WBC Differential Differential Comment Sodium Potassium Chloride Carbon Dioxide Anion Gap BUN Creatinine Estimated GFR POC Glucose 161 H 144 H 225 H Random Glucose Calcium Phosphorus Magnesium AST ALT Albumin 09/07/17 09/07/17 12:43 12:43 WBC 16.0 H RBC 3.35 L Hgb 9.6 L Hct 27.2 L MCV 81.3 MCH 28.6 MCHC 35.2 RDW 18.0 H Plt Count 324 MPV 6.9 L Neut % (Auto) 87.9 H Lymph % (Auto) 5.8 L [place] % (Auto) 5.0 Eos % (Auto) 1.1 Baso % (Auto) 0.2 Neut # (Auto) 14.1 H Lymph # (Auto) 0.9 L [place] # (Auto) 0.8 Eos # (Auto) 0.2 Baso # (Auto) 0.0 WBC Differential . Differential Comment Auto diff final Sodium 136 Potassium 3.8 Chloride 103 Carbon Dioxide 22.7 Anion Gap 10 BUN 24 H Creatinine 0.95 Estimated GFR 77 L POC Glucose Random Glucose 193 H Calcium 8.8 Phosphorus 2.3 L Magnesium 1.9 AST 23 ALT 22 Albumin 2.2 L <Shana North - Last Filed: 09/07/17 13:39> - Labs CBC & Chem 7: 09/07/17 12:43 09/07/17 12:43 Laboratory Results - last 24 hr 09/06/17 09/07/17 09/07/17 21:10 03:12 08:11 WBC RBC Hgb Hct MCV MCH MCHC RDW Plt Count MPV Neut % (Auto) Lymph % (Auto) [place] % (Auto) Eos % (Auto) Baso % (Auto) Neut # (Auto) Lymph # (Auto) [place] # (Auto) Eos # (Auto) Baso # (Auto) WBC Differential Differential Comment Sodium Potassium Chloride Carbon Dioxide Anion Gap BUN Creatinine Estimated GFR POC Glucose 165 H 161 H 144 H Random Glucose Hemoglobin A1c Calcium Phosphorus Magnesium Total Bilirubin AST ALT Alkaline Phosphatase Total Protein Albumin TSH Free T4 Hepatitis A IgM Ab Hep Bs Antigen Hep B Core IgM Ab Hep C IgG Ab 09/07/17 09/07/17 09/07/17 12:22 12:43 12:43 WBC 16.0 H RBC 3.35 L Hgb 9.6 L Hct 27.2 L MCV 81.3 MCH 28.6 MCHC 35.2 RDW 18.0 H Plt Count 324 MPV 6.9 L Neut % (Auto) 87.9 H Lymph % (Auto) 5.8 L [place] % (Auto) 5.0 Eos % (Auto) 1.1 Baso % (Auto) 0.2 Neut # (Auto) 14.1 H Lymph # (Auto) 0.9 L [place] # (Auto) 0.8 Eos # (Auto) 0.2 Baso # (Auto) 0.0 WBC Differential . Differential Comment Auto diff final Sodium 136 Potassium 3.8 Chloride 103 Carbon Dioxide 22.7 Anion Gap 10 BUN 24 H Creatinine 0.95 Estimated GFR 77 L POC Glucose 225 H Random Glucose 193 H Hemoglobin A1c Calcium 8.8 Phosphorus 2.3 L Magnesium 1.9 Total Bilirubin 0.8 AST 23 ALT 22 Alkaline Phosphatase 73 Total Protein 6.3 L Albumin 2.2 L TSH 1.290 Free T4 1.82 H Hepatitis A IgM Ab Hep Bs Antigen Hep B Core IgM Ab Hep C IgG Ab 09/07/17 09/07/17 09/07/17 12:43 12:43 17:37 WBC RBC Hgb Hct MCV MCH MCHC RDW Plt Count MPV Neut % (Auto) Lymph % (Auto) [place] % (Auto) Eos % (Auto) Baso % (Auto) Neut # (Auto) Lymph # (Auto) [place] # (Auto) Eos # (Auto) Baso # (Auto) WBC Differential Differential Comment Sodium Potassium Chloride Carbon Dioxide Anion Gap BUN Creatinine Estimated GFR POC Glucose 172 H Random Glucose Hemoglobin A1c 5.6 Calcium Phosphorus Magnesium Total Bilirubin AST ALT Alkaline Phosphatase Total Protein Albumin TSH Free T4 Hepatitis A IgM Ab Nonreactive Hep Bs Antigen Nonreactive Hep B Core IgM Ab Nonreactive Hep C IgG Ab Nonreactive <Amari Bowens A - Last Filed: 09/07/17 20:20> Assessment and Plan (1) Anemia Status: Acute Code(s): D64.9 - Anemia, unspecified (2) History of gastritis Status: Acute Code(s): Z87.19 - Personal history of other diseases of the digestive system (3) Duodenitis Status: Acute Code(s): K29.80 - Duodenitis without bleeding (4) Acute GI bleeding Status: Acute Code(s): K92.2 - Gastrointestinal hemorrhage, unspecified - Plan Assessment: - Anemia with Hemoccult positive stools Pt had recent work up for anemia with reports of melanotic stools during admission in July. EGD (08/10/2017) --> Normal esophagus. Small hiatal hernia. Medium sized ulcer in the gastric fundus, biopsies taken. Duodenal inflammation in the 2 part of the duodenum and duodenal bulb. Pathology (stomach ulcer) ulcerated gastric mucosa, negative for H. Pylori. (09/07) Pt with no complaints at this time. Alert and oriented to person and place. Per RN no BMs. No nausea, vomiting. Pt tolerating diet Plan Conservative management Monitor H/H Continue Protonix Diet as tolerated No obvious GIB at this time, pt can follow up on an outpatient basis Patient has been seen and examined by myself and Dr. Bowens and this note is written on his behalf <Shana North - Last Filed: 09/07/17 13:39> (1) Anemia Status: Acute Code(s): D64.9 - Anemia, unspecified (2) History of gastritis Status: Acute Code(s): Z87.19 - Personal history of other diseases of the digestive system (3) Duodenitis Status: Acute Code(s): K29.80 - Duodenitis without bleeding (4) Acute GI bleeding Status: Acute Code(s): K92.2 - Gastrointestinal hemorrhage, unspecified - Attending Attestation No evidence of GI bleeding, feeling better and not keen to have colonoscopy now. Will need to schedule that as out patient. Stable from GI point of view now. <Amari Bowens - Last Filed: 09/07/17 20:20>
[2017-09-07 13:38] LABS: Hepatitits B Surface Antigen Nonreactive (Nonreactive)
--- NOTE | 2017-09-07 13:52 | P.PNIM ---
Subjective Interval history: 77-year-old male with a past medical history significant for hypertension, diabetes, depression, BPH, peripheral vascular disease and recent GI bleed discharged on 08/28 was brought to the emergency department from his rehab facility for the evaluation of a low hemoglobin/hematocrit. EGD during previous hospitalization was significant for gastritis and duodenitis. 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 The patient will open his eyes to voice but does not answer questions. He moves his right lower extremity and moans in pain as he does so. His H&H emergency department was 5.2/16.3. 7-12 seen by gi THEY HAVE NOT OFFERED ANY PROCEDURES WILL CHECK LABS AND HOPEFULLY BE ABLE TO DISCHARGE TOMORROW Physical Exam Vital signs: Vital Signs 09/06/17 18:11 09/06/17 20:29 09/07/17 00:06 Temperature 98.5 F Pulse Rate 79 70 82 Respiratory Rate 22 16 14 Blood Pressure 139/65 166/68 H 130/59 L Pulse Oximetry 96 96 97 09/07/17 01:35 09/07/17 02:25 09/07/17 02:30 Temperature 98.7 F Pulse Rate 81 93 H Respiratory Rate 22 20 Blood Pressure 166/77 H Pulse Oximetry 95 09/07/17 02:39 09/07/17 04:00 09/07/17 07:00 Temperature 98.6 F Pulse Rate 78 Respiratory Rate 16 20 Blood Pressure 148/68 H Pulse Oximetry 98 95 09/07/17 07:59 Temperature 97.9 F Pulse Rate 81 Respiratory Rate 18 Blood Pressure 161/82 H Pulse Oximetry 91 L Intake & Output 09/06/17 09/07/17 09/07/17 18:59 06:59 18:59 Intake Total 1100 / 1100 400 / 400 1000 / 1000 Output Total 1700 / 1700 800 / 800 Balance -600 / -600 -400 / -400 1000 / 1000 Intake: IV 1100 / 1100 100 / 100 1000 / 1000 Protonix Inj 80 MG In NS Inj 100 / 100 100 / 100 100 ML @ 10 mls/hr IV.CONT CONT [facility] Rx#:[id number] NS Inj 1,000 ML @ 30 mls/hr IV. 1000 / 1000 1000 / 1000 CONT .Q24H [facility] Rx#:[id number] Oral 300 / 300 Output: Urine 1700 / 1700 Urine Amount (Catheter) 800 / 800 Condom 800 / 800 Other: # Voids 2 Narrative: GENERAL: AWAKE AND ALERT AND ORIENTED X3 TALKATIVE AND COOPERATIVE SKIN: Warm and dry. HEAD: Atraumatic. Normocephalic. EYES: Pupils equal and round. No scleral icterus. No injection or drainage. ENT: No nasal bleeding or discharge. Mucous membranes pink and moist. NECK: Trachea midline. No JVD. CARDIOVASCULAR: Regular rate and rhythm. S1,S2 NO S3 OR S4 NO HEAVE OR THRILL RESPIRATORY: No accessory muscle use. Clear to auscultation. Breath sounds equal bilaterally. GASTROINTESTINAL: Abdomen soft, non-tender, nondistended. Hepatic and splenic margins not palpable. MUSCULOSKELETAL: Extremities without clubbing, cyanosis, or edema. No obvious deformities. LEFT AKA, RIGHT BKA AND DRESSED NEUROLOGICAL: Awake and alert. No obvious cranial nerve deficits. Motor grossly within normal limits. Five out of 5 muscle strength in the arms and legs. Normal speech. PSYCHIATRIC: Appropriate mood and affect; insight and judgment normal. - Urinary Catheter Management Condom Cath placed during this visit: no Results - Labs CBC & Chem 7: 09/07/17 12:43 09/07/17 12:43 Laboratory Results - last 24 hr 09/06/17 09/06/17 09/07/17 18:09 21:10 03:12 WBC RBC Hgb Hct MCV MCH MCHC RDW Plt Count MPV Neut % (Auto) Lymph % (Auto) [place] % (Auto) Eos % (Auto) Baso % (Auto) Neut # (Auto) Lymph # (Auto) [place] # (Auto) Eos # (Auto) Baso # (Auto) WBC Differential Differential Comment Sodium Potassium Chloride Carbon Dioxide Anion Gap BUN Creatinine Estimated GFR POC Glucose 164 H 165 H 161 H Random Glucose Calcium Phosphorus Magnesium Total Bilirubin AST ALT Alkaline Phosphatase Total Protein Albumin TSH Free T4 Hep Bs Antigen 09/07/17 09/07/17 09/07/17 08:11 12:22 12:43 WBC 16.0 H RBC 3.35 L Hgb 9.6 L Hct 27.2 L MCV 81.3 MCH 28.6 MCHC 35.2 RDW 18.0 H Plt Count 324 MPV 6.9 L Neut % (Auto) 87.9 H Lymph % (Auto) 5.8 L [place] % (Auto) 5.0 Eos % (Auto) 1.1 Baso % (Auto) 0.2 Neut # (Auto) 14.1 H Lymph # (Auto) 0.9 L [place] # (Auto) 0.8 Eos # (Auto) 0.2 Baso # (Auto) 0.0 WBC Differential . Differential Comment Auto diff final Sodium Potassium Chloride Carbon Dioxide Anion Gap BUN Creatinine Estimated GFR POC Glucose 144 H 225 H Random Glucose Calcium Phosphorus Magnesium Total Bilirubin AST ALT Alkaline Phosphatase Total Protein Albumin TSH Free T4 Hep Bs Antigen 09/07/17 09/07/17 12:43 12:43 WBC RBC Hgb Hct MCV MCH MCHC RDW Plt Count MPV Neut % (Auto) Lymph % (Auto) [place] % (Auto) Eos % (Auto) Baso % (Auto) Neut # (Auto) Lymph # (Auto) [place] # (Auto) Eos # (Auto) Baso # (Auto) WBC Differential Differential Comment Sodium 136 Potassium 3.8 Chloride 103 Carbon Dioxide 22.7 Anion Gap 10 BUN 24 H Creatinine 0.95 Estimated GFR 77 L POC Glucose Random Glucose 193 H Calcium 8.8 Phosphorus 2.3 L Magnesium 1.9 Total Bilirubin 0.8 AST 23 ALT 22 Alkaline Phosphatase 73 Total Protein 6.3 L Albumin 2.2 L TSH 1.290 Free T4 1.82 H Hep Bs Antigen Nonreactive - Imaging ITS Impressions Chest X-Ray 09/05/17 19:23 CONCLUSION: Trace bibasilar atelectasis and tiny effusion versus scarring left base. Assessment and Plan - Plan 1. Anemia/GI bleed H&H 5.2/16.3 Transfuse 3 units packed red blood cells Hemoccult positive Gastroenterology consulted, appreciate assistance Protonix drip 2. 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 Hypertension/hyperlipidemia Continue home statin, hydralazine, lisinopril 4. COPD Duo nebs as needed 5. Diabetes Holding home Levemir Sliding-scale insulin Monitor blood glucose 6. Chronic kidney disease Creatinine 1.32, baseline for the patient Monitor renal function 7. BPH Continue tamsulosin FEN N.p.o. Electrolytes: Monitor and replete as needed Holding pharmacologic anticoagulation secondary to anemia/GI bleed Code Status: DNR Discussed Condition With: RN AND PT AND CASE MANAGEMENT Discharge Planning: BACK TO SNF??
[2017-09-07 14:10] LABS: Hepatitis A IgM Antibody Nonreactive (Nonreactive)
[2017-09-07 16:25] LABS: Hemoglobin A1c 5.6 % (4.3-6.0)
--- NOTE | 2017-09-07 19:06 | P.PNWCN ---
Wound Care Nurse Consult Description: Received consult for wound management of open area to coccyx/ R buttock from Doctor Rere Communicated with: JAYLEN Coto [facility] and Doctor Tamanna Recommendation: Please cleanse wound to L inner buttock with normal saline and pat dry. Apply Calazime skin protectant paste to inner buttock and perianal area BID and PRN. Please leave wound to L buttock open to air. Please turn patient every 2 hours and PRN for comfort and offloading of pressure from maria e prominences. Please place patient on Airapy bed. Wound/Pressure Injury - Wound Left Buttocks Is This a Chronic Wound: No Requested from Provider a Wound Care Consult: Yes (Wound care saw patient today) Length: 1.5 (~1.5cm) Width: 2 (~2cm) Depth: 0.1 (~<0.1cm) Wound Bed Appearance: [place] Wound Bed Appearance: small wound to L inner buttock presents with 100% pink tissue and that is partial thickness. Wound appears to be related to moisture is not over a maria e prominence Surrounding Tissue Appearance: [place] (with slight blanchable erythema) Surrounding Tissue Temperature: Warm Drainage Amount: None Drainage Odor: No Odor Dressing Status: Open to Air Cleansing Solution: Saline Topical: Calazime skin protectant paste Wound Margin Description: Jagged and irregular - Additional Information Patient seen on [facility] for wound management of open area to coccyx/ R buttock around 1700. Patient is laying in regular fuller hospital bed. Patient is alert and confused with recent R BKA and hx of L AKA. Patient was positioned with the total assistance of JAYLEN Coto, PHI Willard and underwriter solicitation director to the R side for wound assessment. Removed stool soiled hydrocolloid dressing to reveal partial thickness skin loss to L inner buttock, resolved partial thickness skin loss to R buttock, and resolved partial thickness skin loss to R upper posterior thigh. Wound measurements and description are noted above of L inner buttock partial thickness skin loss. Wound is appears to be moisture and friction related due to wound not located over a maria e prominence, and jagged wound margins. Patient has low albumin and low total protein levels, poor bed mobility, and has prominent maria e prominences to sacral and coccyx areas. Patient is at a very high risk for skin breakdown from pressure. No pressure injuries noted at this time. Airapy bed is recommended for patient, with every 2 hour turns.
[2017-09-08 05:29] LABS: Baso % (Auto) 0.3 % (0.0-2.0); Eos # (Auto) 0.4 th/mm3 (0.0-0.4); Eos % (Auto) 3.5 % (0.0-4.0); Hematocrit 27.5 % (39.0-51.0); Hemoglobin 9.2 gm/dL (13.0-17.0); Lymph # (Auto) 1.6 th/mm3 (1.0-4.8); Lymph % (Auto) 12.6 % (9.0-44.0); Mean Corpuscular HGB Conc 33.3 % (32.0-36.0); Mean Corpuscular Hemoglobin 27.7 pg (27.0-34.0); Mean Corpuscular Volume 83.1 fL (80.0-100.0); Mean Platelet Volume 7.4 fL (7.0-11.0); Mono # (Auto) 0.8 th/mm3 (0.0-0.9); Mono % (Auto) 6.3 % (0.0-8.0); Neut # (Auto) 9.7 th/mm3 (1.8-7.7); Neut % (Auto) 77.3 % (16.0-70.0); Platelet Count 337 th/mm3 (150-450); Red Blood Count 3.31 mil/mm3 (4.50-5.90); Red Cell Distribution Width 18.1 % (11.6-17.2); White Blood Count 12.5 th/mm3 (4.0-11.0)
[2017-09-08 05:41] LABS: Anion Gap 9 meq/L (5-15); Aspartate Aminotransferase 15 U/L (15-37); Blood Urea Nitrogen 19 mg/dL (7-18); Calcium 8.2 mg/dL (8.5-10.1); Carbon Dioxide 24.7 meq/L (21.0-32.0); Chloride 104 meq/L (98-107); Glomerular Filtration Rate 76 mL/min (>89); Glucose,Random 118 mg/dL (74-106); Magnesium 1.8 mg/dL (1.5-2.5); Potassium 3.7 meq/L (3.5-5.1); Sodium 138 meq/L (136-145)
[2017-09-08 05:42] LABS: Alanine Aminotransferase 18 U/L (12-78); Phosphorus 2.4 mg/dL (2.5-4.9)
[2017-09-08 05:51] LABS: Alkaline Phosphatase 70 U/L (45-117); Total Protein 5.9 g/dL (6.4-8.2)
[2017-09-08 05:56] LABS: INR 1.2 Ratio; Prothrombin Time 11.9 sec (9.8-11.6)
[2017-09-08] MEDS: Sod Chloride 0.9% Inj 1,000 ML IV.CONT SCH (07:58)
[2017-09-08] MEDS: Insulin NovoLIN Regular Correctional Sugar Inj SQ SCH ×4 (07:59→17:04)
[2017-09-08] MEDS: Sucralfate Liq 1 GM/10 ML UDC PO SCH ×3 (08:42→17:10)
[2017-09-08] MEDS: Lisinopril 5 MG Tablet PO SCH (08:42)
[2017-09-08] MEDS: hydrALAZINE 25 MG Tablet PO SCH (08:42)
[2017-09-08] MEDS ORDERED: Polyethylene Glycol 3350 17 GM Packet PO SCH (15:00)
[2017-09-08] MEDS ORDERED: Ascorbic Acid 500 MG Tablet PO SCH (15:00)
--- NOTE | 2017-09-08 15:20 | P.PNIM ---
Subjective Interval history: 77-year-old male with a past medical history significant for hypertension, diabetes, depression, BPH, peripheral vascular disease and recent GI bleed discharged on 08/28 was brought to the emergency department from his rehab facility for the evaluation of a low hemoglobin/hematocrit. EGD during previous hospitalization was significant for gastritis and duodenitis. 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 The patient will open his eyes to voice but does not answer questions. He moves his right lower extremity and moans in pain as he does so. His H&H emergency department was 5.2/16.3. 09-07 seen by gi THEY HAVE NOT OFFERED ANY PROCEDURES WILL CHECK LABS AND HOPEFULLY BE ABLE TO DISCHARGE TOMORROW 09-08 cleared by GI NO PROCEDURES OFFERED DC BACK TO THE SNF PRN CATAPRES AT [facility] PROTONIX BID DW RN AND PT AND CM DC BACK TO [facility] TODAY PROTONIX BID Physical Exam Vital signs: Vital Signs 09/07/17 16:00 09/07/17 17:00 09/07/17 19:07 Temperature 99.4 F Pulse Rate 83 84 78 Respiratory Rate 16 Blood Pressure 141/70 H Pulse Oximetry 92 L 09/07/17 20:00 09/08/17 00:00 09/08/17 04:00 Temperature 97.8 F 98.2 F Pulse Rate 80 80 78 Respiratory Rate 18 16 Blood Pressure 155/71 H 162/68 H Pulse Oximetry 97 97 09/08/17 08:00 09/08/17 09:00 09/08/17 10:00 Temperature Pulse Rate 70 72 68 Respiratory Rate Blood Pressure Pulse Oximetry 94 L 09/08/17 11:00 09/08/17 12:00 09/08/17 13:00 Temperature 97.9 F Pulse Rate 72 90 85 Respiratory Rate 16 Blood Pressure 167/79 H Pulse Oximetry 97 09/08/17 14:00 Temperature Pulse Rate 81 Respiratory Rate Blood Pressure Pulse Oximetry Intake & Output 09/07/17 09/08/17 09/08/17 18:59 06:59 18:59 Intake Total 1840 / 1840 400 / 400 100 / 100 Output Total 701 / 701 601 / 601 Balance 1139 / 1139 -201 / -201 100 / 100 Weight 49.8 kg Intake: IV 1000 / 1000 100 / 100 NS Inj 1,000 ML @ 30 mls/hr IV. 1000 / 1000 CONT .Q24H [facility] Rx#:[id number] Oral 840 / 840 400 / 400 Output: Urine 700 / 700 400 / 400 Stool Urine Amount (Catheter) 200 / 200 Condom 200 / 200 Other: # Voids 2 Date of Last Bowel Movement 09/07/17 09/07/17 09/07/17 # Incontinent Bowel Movements 1 1 Narrative: GENERAL: AWAKE AND ALERT AND ORIENTED X3 TALKATIVE AND COOPERATIVE SKIN: Warm and dry. HEAD: Atraumatic. Normocephalic. EYES: Pupils equal and round. No scleral icterus. No injection or drainage. ENT: No nasal bleeding or discharge. Mucous membranes pink and moist. NECK: Trachea midline. No JVD. CARDIOVASCULAR: Regular rate and rhythm. S1,S2 NO S3 OR S4 NO HEAVE OR THRILL RESPIRATORY: No accessory muscle use. Clear to auscultation. Breath sounds equal bilaterally. GASTROINTESTINAL: Abdomen soft, non-tender, nondistended. Hepatic and splenic margins not palpable. MUSCULOSKELETAL: Extremities without clubbing, cyanosis, or edema. No obvious deformities. LEFT AKA, RIGHT BKA AND DRESSED NEUROLOGICAL: Awake and alert. No obvious cranial nerve deficits. Motor grossly within normal limits. Five out of 5 muscle strength in the arms and legs. Normal speech. PSYCHIATRIC: Appropriate mood and affect; insight and judgment normal. - Urinary Catheter Management Condom Cath placed during this visit: no Results - Labs CBC & Chem 7: 09/08/17 03:38 09/08/17 03:38 Laboratory Results - last 24 hr 09/07/17 09/07/17 09/07/17 12:43 17:37 22:22 WBC RBC Hgb Hct MCV MCH MCHC RDW Plt Count MPV Neut % (Auto) Lymph % (Auto) [place] % (Auto) Eos % (Auto) Baso % (Auto) Neut # (Auto) Lymph # (Auto) [place] # (Auto) Eos # (Auto) Baso # (Auto) WBC Differential Differential Comment PT INR Sodium Potassium Chloride Carbon Dioxide Anion Gap BUN Creatinine Estimated GFR POC Glucose 172 H 214 H Random Glucose Hemoglobin A1c 5.6 Calcium Phosphorus Magnesium Total Bilirubin AST ALT Alkaline Phosphatase Total Protein Albumin TSH Free T4 09/08/17 09/08/17 09/08/17 03:38 03:38 03:38 WBC 12.5 H RBC 3.31 L Hgb 9.2 L Hct 27.5 L MCV 83.1 MCH 27.7 MCHC 33.3 RDW 18.1 H Plt Count 337 MPV 7.4 Neut % (Auto) 77.3 H Lymph % (Auto) 12.6 [place] % (Auto) 6.3 Eos % (Auto) 3.5 Baso % (Auto) 0.3 Neut # (Auto) 9.7 H Lymph # (Auto) 1.6 [place] # (Auto) 0.8 Eos # (Auto) 0.4 Baso # (Auto) 0.0 WBC Differential . Differential Comment Auto diff final PT 11.9 H INR 1.2 Sodium 138 Potassium 3.7 Chloride 104 Carbon Dioxide 24.7 Anion Gap 9 BUN 19 H Creatinine 0.96 Estimated GFR 76 L POC Glucose Random Glucose 118 H Hemoglobin A1c Calcium 8.2 L Phosphorus 2.4 L Magnesium 1.8 Total Bilirubin 0.7 AST 15 ALT 18 Alkaline Phosphatase 70 Total Protein 5.9 L Albumin 2.0 L TSH 1.280 Free T4 1.90 H 09/08/17 09/08/17 08:36 11:14 WBC RBC Hgb Hct MCV MCH MCHC RDW Plt Count MPV Neut % (Auto) Lymph % (Auto) [place] % (Auto) Eos % (Auto) Baso % (Auto) Neut # (Auto) Lymph # (Auto) [place] # (Auto) Eos # (Auto) Baso # (Auto) WBC Differential Differential Comment PT INR Sodium Potassium Chloride Carbon Dioxide Anion Gap BUN Creatinine Estimated GFR POC Glucose 140 H 193 H Random Glucose Hemoglobin A1c Calcium Phosphorus Magnesium Total Bilirubin AST ALT Alkaline Phosphatase Total Protein Albumin TSH Free T4 - Imaging ITS Impressions Chest X-Ray 09/05/17 19:23 CONCLUSION: Trace bibasilar atelectasis and tiny effusion versus scarring left base. - Procedures NONE Assessment and Plan - Plan 1. Anemia/GI bleed H&H 5.2/16.3 Transfuse 3 units packed red blood cells Hemoccult positive Gastroenterology consulted, appreciate assistance Protonix PO NO PROCEDURES ANEMIA IS STABLE DC BACK TO SNF ACUTE POSTHEMORRHAGIC ANEMIA IN SETTING OF H&H OF 5.2/16.3 WITH TRANSFUSION OF 3 UNITS PRBC AND GI CONSULT AND STOPPING ANTICOAGULATION PROTONIX BID ADDED 2. 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 Hypertension/hyperlipidemia Continue home statin, hydralazine, lisinopril 4. COPD Duo nebs as needed 5. Diabetes Holding home Levemir Sliding-scale insulin Monitor blood glucose 6. Chronic kidney disease Creatinine 1.32, baseline for the patient Monitor renal function 7. BPH Continue tamsulosin Electrolytes: Monitor and replete as needed e-forcse checked last RX AT [facility] BY DR CARVAJAL 1 TABLET OF OXYCODONE/ACETOMINOPHEN 5/325 WILL GIVE 3 DAYS AT DISCHARGE Code Status: DNR Discussed Condition With: PT AND RN AND CUSTOM HOME INSTALLER Discharge Planning: BACK TO SNF TODAY
--- NOTE | 2017-09-08 15:30 | P.DS ---
Date of admission: 09/05/17 20:47 Primary care physician: Dick Tan Attending physician on discharge: Vishnu Nolen Anticipated date of discharge: 09/08/17 Brief History from admission: 77-year-old male with a past medical history significant for hypertension, diabetes, depression, BPH, peripheral vascular disease and recent GI bleed discharged on 08/28 was brought to the emergency department from his rehab facility for the evaluation of a low hemoglobin/hematocrit. EGD during previous hospitalization was significant for gastritis and duodenitis. 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 The patient will open his eyes to voice but does not answer questions. He moves his right lower extremity and moans in pain as he does so. His H&H emergency department was 5.2/16.3. DS: Diagnosis - Discharge Diagnosis (1) Acute GI bleeding Status: Acute (2) Anemia Status: Acute (3) Duodenitis Status: Acute (4) History of gastritis Status: Acute DS: Medications - Discharge Medications Prescriptions: hydralazine 50 mg PO BID #60 tab oxycodone-acetaminophen 1 tab PO Q6HR PRN #12 tab PRN Reason: Acute Pain pantoprazole 40 mg PO BID #60 tab DS: Summary Hospital Course: 77-year-old male with a past medical history significant for hypertension, diabetes, depression, BPH, peripheral vascular disease and recent GI bleed discharged on 08/28 was brought to the emergency department from his rehab facility for the evaluation of a low hemoglobin/hematocrit. EGD during previous hospitalization was significant for gastritis and duodenitis. 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 The patient will open his eyes to voice but does not answer questions. He moves his right lower extremity and moans in pain as he does so. His H&H emergency department was 5.2/16.3. 7-12 seen by gi THEY HAVE NOT OFFERED ANY PROCEDURES WILL CHECK LABS AND HOPEFULLY BE ABLE TO DISCHARGE TOMORROW 09-08 cleared by GI NO PROCEDURES OFFERED DC BACK TO THE SNF PRN CATAPRES AT SNF PROTONIX BID DW RN AND PT AND CM DC BACK TO SNF TODAY PROTONIX BID - Time Spent with Patient Total time spent providing and/or coordinating discharge services:GREATER THAN 42 MINUTES Greater than 30 minutes - Quality: VTE Deep Vein Thrombosis/Pulmonary Embolism Present on Admission: No Exam Vital signs: Vital Signs 09/07/17 16:00 09/07/17 17:00 09/07/17 19:07 Temperature 99.4 F Pulse Rate 83 84 78 Respiratory Rate 16 Blood Pressure 141/70 H Pulse Oximetry 92 L 09/07/17 20:00 09/08/17 00:00 09/08/17 04:00 Temperature 97.8 F 98.2 F Pulse Rate 80 80 78 Respiratory Rate 18 16 Blood Pressure 155/71 H 162/68 H Pulse Oximetry 97 97 09/08/17 08:00 09/08/17 09:00 09/08/17 10:00 Temperature Pulse Rate 70 72 68 Respiratory Rate Blood Pressure Pulse Oximetry 94 L 09/08/17 11:00 09/08/17 12:00 09/08/17 13:00 Temperature 97.9 F Pulse Rate 72 90 85 Respiratory Rate 16 Blood Pressure 167/79 H Pulse Oximetry 97 09/08/17 14:00 Temperature Pulse Rate 81 Respiratory Rate Blood Pressure Pulse Oximetry Intake & Output 09/07/17 09/08/17 09/08/17 18:59 06:59 18:59 Intake Total 1840 / 1840 400 / 400 100 / 100 Output Total 701 / 701 601 / 601 Balance 1139 / 1139 -201 / -201 100 / 100 Weight 49.8 kg Intake: IV 1000 / 1000 100 / 100 NS Inj 1,000 ML @ 30 mls/hr IV. 1000 / 1000 CONT .Q24H [facility] Rx#:[id number] Oral 840 / 840 400 / 400 Output: Urine 700 / 700 400 / 400 Stool / Urine Amount (Catheter) 200 / 200 Condom 200 / 200 Other: # Voids 2 Date of Last Bowel Movement 09/07/17 09/07/17 09/07/17 # Incontinent Bowel Movements 1 1 Narrative: GENERAL: AWAKE AND ALERT AND ORIENTED X3 TALKATIVE AND COOPERATIVE SKIN: Warm and dry. HEAD: Atraumatic. Normocephalic. EYES: Pupils equal and round. No scleral icterus. No injection or drainage. ENT: No nasal bleeding or discharge. Mucous membranes pink and moist. NECK: Trachea midline. No JVD. CARDIOVASCULAR: Regular rate and rhythm. S1,S2 NO S3 OR S4 NO HEAVE OR THRILL RESPIRATORY: No accessory muscle use. Clear to auscultation. Breath sounds equal bilaterally. GASTROINTESTINAL: Abdomen soft, non-tender, nondistended. Hepatic and splenic margins not palpable. MUSCULOSKELETAL: Extremities without clubbing, cyanosis, or edema. No obvious deformities. LEFT AKA, RIGHT BKA AND DRESSED NEUROLOGICAL: Awake and alert. No obvious cranial nerve deficits. Motor grossly within normal limits. Five out of 5 muscle strength in the arms and legs. Normal speech. PSYCHIATRIC: Appropriate mood and affect; insight and judgment normal. Results Procedures completed during hospitalization: NONE Completed studies during hospitalization: Laboratory Results WBC 12.5 th/mm3 (4.0-11.0) H 09/08/17 03:38 RBC 3.31 mil/mm3 (4.50-5.90) L 09/08/17 03:38 Hgb 9.2 gm/dL (13.0-17.0) L 09/08/17 03:38 Hct 27.5 % (39.0-51.0) L 09/08/17 03:38 MCV 83.1 fL (80.0-100.0) 09/08/17 03:38 MCH 27.7 pg (27.0-34.0) 09/08/17 03:38 MCHC 33.3 % (32.0-36.0) 09/08/17 03:38 RDW 18.1 % (11.6-17.2) H 09/08/17 03:38 Plt Count 337 th/mm3 (150-450) 09/08/17 03:38 MPV 7.4 fL (7.0-11.0) 09/08/17 03:38 Prelim Diff (Auto) Slide review pending 09/05/17 18:10 Neut % (Auto) 77.3 % (16.0-70.0) H 09/08/17 03:38 Lymph % (Auto) 12.6 % (9.0-44.0) 09/08/17 03:38 [place] % (Auto) 6.3 % (0.0-8.0) 09/08/17 03:38 Eos % (Auto) 3.5 % (0.0-4.0) 09/08/17 03:38 Baso % (Auto) 0.3 % (0.0-2.0) 09/08/17 03:38 Neut # (Auto) 9.7 th/mm3 (1.8-7.7) H 09/08/17 03:38 Lymph # (Auto) 1.6 th/mm3 (1.0-4.8) 09/08/17 03:38 [place] # (Auto) 0.8 th/mm3 (0.0-0.9) 09/08/17 03:38 Eos # (Auto) 0.4 th/mm3 (0.0-0.4) 09/08/17 03:38 Baso # (Auto) 0.0 th/mm3 (0.0-0.2) 09/08/17 03:38 WBC Differential . 09/08/17 03:38 Diff Scan Auto diff confirmed 09/05/17 18:10 Differential Comment Auto diff final 09/08/17 03:38 Platelet Estimate Normal (Normal) 09/05/17 18:10 Platelet Morphology Normal (Normal) 09/05/17 18:10 Ovalocytes 1+ (None) H 09/05/17 18:10 Hematology Comments 09/06/17 06:01 PT 11.9 sec (9.8-11.6) H 09/08/17 03:38 INR 1.2 Ratio 09/08/17 03:38 APTT 23.3 sec (24.3-30.1) L 09/05/17 18:10 Sodium 138 meq/L (136-145) 09/08/17 03:38 Potassium 3.7 meq/L (3.5-5.1) 09/08/17 03:38 Chloride 104 meq/L (98-107) 09/08/17 03:38 Carbon Dioxide 24.7 meq/L (21.0-32.0) 09/08/17 03:38 Anion Gap 9 meq/L (5-15) 09/08/17 03:38 BUN 19 mg/dL (7-18) H 09/08/17 03:38 Creatinine 0.96 mg/dL (0.60-1.30) 09/08/17 03:38 Estimated GFR 76 mL/min (>89) L 09/08/17 03:38 POC Glucose 193 mg/dl (68-110) H 09/08/17 11:14 Random Glucose 118 mg/dL (74-106) H 09/08/17 03:38 Hemoglobin A1c 5.6 % (4.3-6.0) 09/07/17 12:43 Calcium 8.2 mg/dL (8.5-10.1) L 09/08/17 03:38 Phosphorus 2.4 mg/dL (2.5-4.9) L 09/08/17 03:38 Magnesium 1.8 mg/dL (1.5-2.5) 09/08/17 03:38 Total Bilirubin 0.7 mg/dL (0.2-1.0) 09/08/17 03:38 AST 15 U/L (15-37) 09/08/17 03:38 ALT 18 U/L (12-78) 09/08/17 03:38 Alkaline Phosphatase 70 U/L (45-117) 09/08/17 03:38 Total Protein 5.9 g/dL (6.4-8.2) L 09/08/17 03:38 Albumin 2.0 g/dL (3.4-5.0) L 09/08/17 03:38 TSH 1.280 uIU/mL (0.358-3.740) 09/08/17 03:38 Free T4 1.90 ng/dL (0.76-1.46) H 09/08/17 03:38 Urine Color Yellow (Yellw/Straw) 09/06/17 01:56 Urine Clarity Hazy (Clear) H 09/06/17 01:56 Urine pH 5.0 (5.0-8.5) 09/06/17 01:56 Ur Specific Bl[place]ard 1.013 (1.002-1.035) 09/06/17 01:56 Urine Protein Negative mg/dL (Neg-Trace) 09/06/17 01:56 Urine Glucose (UA) 50 mg/dL (Negative) 09/06/17 01:56 Urine Ketones Negative mg/dL (Negative) 09/06/17 01:56 Urine Occult Blood Negative (Negative) 09/06/17 01:56 Urine Nitrate Negative (Negative) 09/06/17 01:56 Urine Bilirubin Negative (Negative) 09/06/17 01:56 Urine Urobilinogen 2.0 mg/dL (Less than 2) H 09/06/17 01:56 Ur Leukocyte Esterase Negative (Negative) 09/06/17 01:56 Urine RBC Less than 1 /hpf (0-3) 09/06/17 01:56 Urine WBC 1 /hpf (0-5) 09/06/17 01:56 Ur Squamous Epith Cells <1 /hpf (0-5) 09/06/17 01:56 Urine Mucus Few /lpf (Occasional) H 09/06/17 01:56 Hepatitis A IgM Ab Nonreactive (Nonreactive) 09/07/17 12:43 Hep Bs Antigen Nonreactive (Nonreactive) 09/07/17 12:43 Hep B Core IgM Ab Nonreactive (Nonreactive) 09/07/17 12:43 Hep C IgG Ab Nonreactive (Nonreactive) 09/07/17 12:43 Blood Type A Positive 09/05/17 18:10 Antibody Screen Negative 09/05/17 18:10 MTS Gel Crossmatch See Detail 09/05/17 18:10 Bld Prod Order Comment 09/05/17 18:10 Impressions Chest X-Ray 09/05/17 19:23 CONCLUSION: Trace bibasilar atelectasis and tiny effusion versus scarring left base. Labs on day of discharge: Labs from last 24 hours 09/08/17 09/08/17 09/08/17 11:14 08:36 03:38 WBC RBC Hgb Hct MCV MCH MCHC RDW Plt Count MPV Neut % (Auto) Lymph % (Auto) [place] % (Auto) Eos % (Auto) Baso % (Auto) Neut # (Auto) Lymph # (Auto) [place] # (Auto) Eos # (Auto) Baso # (Auto) WBC Differential Differential Comment PT INR Sodium 138 Potassium 3.7 Chloride 104 Carbon Dioxide 24.7 Anion Gap 9 BUN 19 H Creatinine 0.96 Estimated GFR 76 L POC Glucose 193 H 140 H Random Glucose 118 H Hemoglobin A1c Calcium 8.2 L Phosphorus 2.4 L Magnesium 1.8 Total Bilirubin 0.7 AST 15 ALT 18 Alkaline Phosphatase 70 Total Protein 5.9 L Albumin 2.0 L TSH 1.280 Free T4 1.90 H 09/08/17 09/08/17 09/08/17 03:38 03:38 03:38 WBC 12.5 H RBC 3.31 L Hgb 9.2 L Hct 27.5 L MCV 83.1 MCH 27.7 MCHC 33.3 RDW 18.1 H Plt Count 337 MPV 7.4 Neut % (Auto) 77.3 H Lymph % (Auto) 12.6 [place] % (Auto) 6.3 Eos % (Auto) 3.5 Baso % (Auto) 0.3 Neut # (Auto) 9.7 H Lymph # (Auto) 1.6 [place] # (Auto) 0.8 Eos # (Auto) 0.4 Baso # (Auto) 0.0 WBC Differential . Differential Comment Auto diff final PT 11.9 H INR 1.2 Sodium Potassium Chloride Carbon Dioxide Anion Gap BUN Creatinine Estimated GFR POC Glucose Random Glucose Hemoglobin A1c Pending Calcium Phosphorus Magnesium Total Bilirubin AST ALT Alkaline Phosphatase Total Protein Albumin TSH Free T4 09/07/17 09/07/17 09/07/17 22:22 17:37 12:43 WBC RBC Hgb Hct MCV MCH MCHC RDW Plt Count MPV Neut % (Auto) Lymph % (Auto) [place] % (Auto) Eos % (Auto) Baso % (Auto) Neut # (Auto) Lymph # (Auto) [place] # (Auto) Eos # (Auto) Baso # (Auto) WBC Differential Differential Comment PT INR Sodium Potassium Chloride Carbon Dioxide Anion Gap BUN Creatinine Estimated GFR POC Glucose 214 H 172 H Random Glucose Hemoglobin A1c 5.6 Calcium Phosphorus Magnesium Total Bilirubin AST ALT Alkaline Phosphatase Total Protein Albumin TSH Free T4 - Impressions ITS Impressions Chest X-Ray 09/05/17 19:23 CONCLUSION: Trace bibasilar atelectasis and tiny effusion versus scarring left base. Discharge Plan - Discharge Disposition Patient Disposition: 03 Discharge to SNF - Discharge Condition Condition: Good - Discharge Order Discharge Orders: Discharge Order (Routine); Ordered 09/08/17 Ordered By: Vishnu Nolen - Discharge Details Anticipated Discharge Date: 09/08/17 Discharge Comment: DC TO SNF - Physicians Team Primary Care Provider: Dick Tan Attending Provider: Vishnu Nolen Other Providers: Amari Bowens MD
[2017-09-08 17:34] LABS: Hemoglobin A1c 5.7 % (4.3-6.0)
[2017-09-08] MEDS ORDERED: Insulin Detemir Inj 1,000 UNIT/10 ML Vial SQ SCH (21:00)
== END 2017-09-08 18:59 ==
LOC: NEPC 17:40 → NEDA 20:47 → NEDH 09-06 02:12 → HCIS 09-07 02:19
PROVIDERS: ADMIT Family Medicine; ATTEND Family Medicine